=== PATIENT | male | born 2000 | race Caucasian/White ===

== ENCOUNTER 2021-04-15 21:14 | Emergency (ER) | payer SELFPAY ==
[2021-04-15 21:35] VITALS: BP 138/71; PULSE 104; RESP 20; TEMP 37.2; O2SAT 100
[2021-04-15 23:42] VITALS: BP 112/55; PULSE 78; RESP 15; TEMP 36.2; O2SAT 98
--- NOTE | 2021-04-16 01:23 | PC.NURSE ---
Pt ambulated to director of health care marketing to say his ride was here and he no longer wanted to wait to be seen. Pt ambulated out in no distress w/ steady gait.
== END 2021-04-16 02:02 | disposition left against medical advice (07) ==
LOC: ANHED 04-16 01:40
DX: Z53.21 Procedure and treatment not carried out due to patient leaving prior to being seen by health care provider (principal)
CPT/HCPCS: 99199

== ENCOUNTER 2021-04-16 07:19 | Inpatient (IN) | payer OTHER, SELFPAY ==
[2021-04-16] VITALS (51 sets, daily range): BP systolic 100–148; BP diastolic 35–76; PULSE 76–125; RESP 14–22; TEMP 37–38.8; O2SAT 95–100; BMI 24.7
--- NOTE | ~2021-04-16 | CT_ITS ---
EXAMINATION: CT brain wo con EXAM DATE: 04/16/2021 08:34 INDICATION: Headache. Symptoms 5 days. TECHNIQUE: Spiral CT of the head was performed without contrast. Axial, coronal and sagittal images were reviewed. The dose-length product (DLP) for this examination was 605.33 mGy-cm. The exposure w as tailored according to patient size, and iterative reconstruction (ASIR) was used as additional dos e reduction technique. There is no prior study for comparison. FINDINGS: Basilar cisterns unremarkable. There is no acute intraparenchymal hemorrhage. No evidence of intraparenchymal brain mass lesion. No evidence of acute infarction. There is no mass effect or midline shift. The ventricles are normal in size. There are no extra-axial collections. There are no acute calvarial fractures. The orbits are unremarkable. Soft tissue is unremarkable. The visuali zed sinuses and mastoid air cells are well aerated. IMPRESSION: No acute intracranial findings. Reviewed, dictated and finalized at location A. 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
--- NOTE | ~2021-04-16 | XR_ITS ---
EXAMINATION: XR lumbar puncture diagnostic EXAM DATE: 04/16/2021 13:32 INDICATION: Headaches. TECHNIQUE: Informed consent was obtained from the patient for doing this procedure. I discussed bene fits and risks including bleeding, infection, backache and headache. Alternatives also discussed. Rad iologist Kun Oconnor M.D. performed the procedure with date of pulsed dose reduction fluoroscopy, wit h fluoroscopic time of 0.1 minutes. The DAP for this procedure was 0.09 Gycm2. A total of 1 images obtained for the exam. A timeout procedure was performed. The back was prepped in standard sterile fashion with Betadine. L4-5 entry site was chosen under fluoroscopic guidance and infiltrated with 2 mL 1% lidocaine. The t hecal sac was then accessed from a left paracentral approach using a 3.5 22G needle. Opening pressure determined to be 20 mmHg, considered upper limits of normal. A total of 9.5 mL of c lear cerebral spinal fluid were then drained and placed in 3 consecutive vials which were labeled and sent to lab for analysis. There were no immediate complications. IMPRESSION: Status post fluoroscopic guided lumbar puncture. Reviewed, dictated and finalized at location A. RANS EMPLOYMENT REPRESENTATIVE
--- NOTE | ~2021-04-16 | MR_ITS ---
EXAMINATION: MR brain/brain stem wo con EXAM DATE: 04/17/2021 17:54 INDICATION: registered dietician infection . TECHNIQUE: Magnetic resonance imaging (MRI) of the brain/brain stem obtained without contrast. Sagitt al T1, axial diffusion, gradient echo (T2*), T1, T2, FLAIR sequences obtained. Correlation is made t o head CT from 04/16/2021. FINDINGS: No temporal lobe edema or other intraparenchymal signal abnormality. 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 There are no areas of restricted diffusion to suggest acute infarction . There is no acute hemorrhage seen on the T2*, a hemosiderin sensitive sequence. No intraparenchym al brain mass. The ventricles are normal in size. There are no extra-axial collections. Flow voids are seen in the cerebral arteries on the T2-weighted sequences consistent with their expected patency . The orbits are unremarkable. Incidental note made of enlarged tonsils seen on the sagittal T1-we ighted sequence. IMPRESSION: 1. No acute intracranial findings. 2. Bilateral tonsillar hypertrophy. Reviewed, dictated and finalized at location A. 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
[2021-04-16] MEDS: SODIUM CHLORIDE 0.9% IV 1,000 ML 999 ML IV CONT ×2 (08:50→09:46)
[2021-04-16] MEDS: ONDANSETRON INJ 4 MG/2 ML VIAL IV PUSH (08:51)
[2021-04-16 09:00] LABS: Basophils Percent Auto 0.3 % (0.2-1.2); Hematocrit 34.6 % (42.0-52.0); Hemoglobin 12.2 g/dL (14.0-18.0); Immature Granulocyte Absolute 0.05 K/mm3 (0.00-0.031); Immature Granulocyte Percent A 0.5 % (0-0.5); Lymphocytes Percent Auto 6.6 % (18.3-44.2); Mean Corpuscular HGB Conc 35.3 g/dl (32-36); Mean Corpuscular Hemoglobin 31.8 pg (26-34); Mean Corpuscular Volume 90.1 fl (80-100); Mean Platelet Volume 9.2 fl (7.4-10.4); Monocytes Absolute Auto 0.9 K/mm3 (0.1-0.6); Monocytes Percent Auto 8.2 % (2.6-8.5); Neutrophils Absolute Auto 8.9 K/mm3 (1.3-6.7); Neutrophils Percent Auto 84.4 % (45.5-73.1); Platelet Count Result 168 k/mm3 (150-375); Red Blood Count 3.84 M/mm3 (4.6-6.20); Red Cell Distribution Width 11.9 % (11.5-14.5); White Blood Count 10.5 K/mm3 (4.5-10.0)
[2021-04-16 09:08] LABS: Lipase 38 U/L (23-300)
[2021-04-16 09:33] LABS: Alanine Aminotransferase 25 U/L (4-50); Albumin Level 4.1 g/dL (3.7-5.6); Alkaline Phosphatase 87 U/L (58-237); Anion Gap 12 mmol/L (8-16); Aspartate Amino Transferase 33 U/L (17-59); Bilirubin,Total 0.7 mg/dL (0.2-1.3); Blood Urea Nitrogen 16 mg/dL (8-21); Calcium 8.6 mg/dL (8.9-10.7); Carbon Dioxide 21 mmol/L (22-30); Chloride 99 mmol/L (98-107); Estimated CRCL calculation 112 ml/min; Estimated Glomerular Filt Rate > 60; Glucose 116 mg/dL (65-110); Potassium 3.7 mmol/L (3.4-5.0); Sodium 132 mmol/L (134-143)
[2021-04-16 09:34] LABS: Add Urine Microscopic? YES; Appearance Urine Clear (Clear); Bilirubin Urine Negative (Negative); Blood Urine Negative (Negative); Color Urine Yellow (Yellow); Glucose Urine UA Negative (Negative); Ketones Urine 2+ mg/dL (Negative); Leukocyte Esterase Ur Negative LEU/UL (Negative); Mucus Urine Rare /lpf; Nitrate Urine Negative (Negative); Protein Urine Negative (Negative); RBC Urine 0-2 /hpf (0-2); Specific Grav Ur 1.027 (1.001-1.035); Urobilinogen Urine Negative mg/dL (<2.0); WBC Urine 0-3 /hpf
[2021-04-16 09:47] LABS: INR 1.2; Partial Thromboplastin Time 30.1 SECONDS (22.3-36.8); Prothrombin Time 14.8 Seconds (11.1-14.7)
[2021-04-16] MEDS: KETOROLAC 30 MG/ML VIAL (*BKC) IV PUSH (10:22)
--- NOTE | 2021-04-16 12:13 | PC.NURSE ---
RN obtained consent for pt. spinal tap. ERP aware.
[2021-04-16 13:47] LABS: Glucose CSF 58 mg/dL (40-70); Total Protein CSF 68 mg/dL (12-60)
[2021-04-16 14:05] LABS: Appearance CSF Clear (Clear); CSF source CSF; Color CSF Colorless (Colorless); Lymphocytes CSF 95 % (40-80); Monocytes CSF 5 % (15-45)
[2021-04-16 14:06] LABS: Nucleated Cell CSF 437 /uL (0-5); Red Blood Cell CSF 0 (0-2)
[2021-04-16] MEDS: cefTRIAXone 2 GM in SODIUM CHLORIDE 0.9% IV 100 ML 200 ML IVPB (15:32)
--- NOTE | 2021-04-16 15:43 | ED.FEVER ---
HPI - Fever General Chief Complaint: Fever Stated Complaint: Headache Time Seen by Provider: 04/16/21 07:56 Source: RN notes reviewed History of Present Illness HPI Narrative: Patient presents emergency department from home for headache patient states temperatu headache initially began on Saturday, 03 April and been constant since that time the pain is diffuse throughout the head described as aching in nature he states that he began to develop a fever yesterday as well as nausea vomiting. Patient states that he did not take anything for the pain today states the pain is worse when he bends his head forward or side to side states that he was seen at emergency department yesterday and had a work-up including Covid swab there were negative he denies taking any medication today for the pain he denies any vision changes numbness or tingling in extremities chest pain shortness of breath abdominal or any other Related Data Allergies Allergy/AdvReac Type Severity Reaction Status Date / Time No Known Allergies Allergy Verified 04/15/21 21:37 Review of Systems Review of Systems: Gen.: Reports fever Eyes: Denies eye pain or visual change ENT: Denies congestion Respiratory: Denies shortness of breath or cough CV: Denies chest pain or palpitations GI: Denies abdominal pain reports nausea Musculoskeletal: Denies back pain or muscle pain Neuro: Reports headache Skin: Denies rash Except as documented, all other systems reviewed and negative [facility] Past Medical History Medical History (Updated 04/16/21 @ 17:06 by Lionel Rojo DO) Patient denies significant medical history Social History Social History (Updated 04/16/21 @ 17:04 by Lionel Rojo DO) Smoking status: Never smoker Exam Narrative: APPEARANCE: No acute distress, nontoxic, resting in bed EYES: EOMI, PERRL HEENT: Normocephalic, atraumatic, TMs clear bilaterally nares patent Neck: Supple no midline tenderness palpation increased headache with bending head forward and side to side RESPIRATORY: No respiratory distress Clear to auscultation bilaterally with no rhonchi wheezing or rales. CARDIOVASCULAR: Regular rate and rhythm without murmurs rubs or gallops. ABDOMINAL: Soft, nontender, nondistended, no rebound or guarding MUSCULOSKELETAl: Moves all extremities. No clubbing, cyanosis or edema. NEURO: Awake and alert x 3. Following commands, speech normal, no focal deficits SKIN:: Warm, dry. No rashes lesions or abrasions PSYCHIATRIC: Normal affect/mood, Course Course Emergency Course: Cussed with Dr. Oconnor will take patient for spinal tap under fluoroscopy Discussed with Dr. Feliciano results of work-up this time does agree likely viral he does request the patient be started with both antibiotics and acyclovir to cover for bacterial and viral meningitis until full cultures are returned Patient states he is feeling better at this time states headache is down to 1 remains ANO x3 Discussed with patient and family results of workup and diagnosis. Discussed need for admission. Patient and family understand and agree to current treatment plan Vital Signs Vital signs: Vital Signs Temperature 101.6 F H 04/16/21 07:34 Pulse Rate 125 H 04/16/21 07:34 Respiratory Rate 16 04/16/21 07:34 Blood Pressure 122/76 04/16/21 07:34 Pulse Oximetry 99 04/16/21 07:34 Temperature 100.1 F H 04/16/21 16:19 Pulse Rate 110 H 04/16/21 16:19 Respiratory Rate 14 04/16/21 16:19 Blood Pressure 122/53 L 04/16/21 14:00 Pulse Oximetry 99 04/16/21 16:19 MDM - Fever Lab Data Result diagrams: 04/16/21 08:51 04/16/21 08:51 Labs: Lab Results 04/16/21 04/16/21 04/16/21 Range/Units 08:51 08:51 08:51 WBC 10.5 H (4.5-10.0) K/mm3 RBC 3.84 L (4.6-6.20) M/mm3 Hgb 12.2 L (14.0-18.0) g/dL Hct 34.6 L (42.0-52.0) % MCV 90.1 (80-100) fl MCH 31.8 (26-34) pg MCHC 35.3 (32-36) g/dl RDW 11.9 (11.5-14.
[2021-04-16 16:07] LABS: Lactic Acid Reflex 0.8 mmol/L (0.7-2.1)
[2021-04-16] MEDS: SODIUM CHLORIDE 0.9% IV 1,000 ML 80 ML IV CONT ×2 (19:00→22:35)
--- NOTE | 2021-04-16 23:42 | ADMGEN ---
This patient, Noel Chahal, was admitted to [facility] Surg Room 309-01. Patient oriented to hospital policies and general routines including ID bracelet, bed and alarms, visiting hours, pain management, procedures, bathroom and other care routines, personal items, smoking policy, room service/diet, and visiting hours. Information on how to activate the Rapid Response Team has been discussed. Patient/Family are encouraged to report perceived risks to care and to ask questions if they do not understand what they are told or what they should do.
[2021-04-17] MEDS: cefTRIAXone 2 GM in SODIUM CHLORIDE 0.9% IV 100 ML 200 ML IVPB ×2 (03:51→16:56)
[2021-04-17 06:30] VITALS: BP 129/62; PULSE 88; RESP 16; TEMP 37.4; O2SAT 99
[2021-04-17 06:34] LABS: Basophils Percent Auto 0.4 % (0.2-1.2); Eosinophils Percent Auto 0.2 % (0-4.4); Hematocrit 32.9 % (42.0-52.0); Hemoglobin 11.5 g/dL (14.0-18.0); Immature Granulocyte Absolute 0.04 K/mm3 (0.00-0.031); Immature Granulocyte Percent A 0.4 % (0-0.5); Lymphocytes Absolute Auto 1.25 K/mm3 (0.9-3.2); Lymphocytes Percent Auto 13.7 % (18.3-44.2); Mean Corpuscular Hemoglobin 31.4 pg (26-34); Mean Corpuscular Volume 89.9 fl (80-100); Mean Platelet Volume 9.4 fl (7.4-10.4); Monocytes Absolute Auto 0.9 K/mm3 (0.1-0.6); Monocytes Percent Auto 9.8 % (2.6-8.5); Neutrophils Absolute Auto 6.9 K/mm3 (1.3-6.7); Neutrophils Percent Auto 75.5 % (45.5-73.1); Platelet Count Result 160 k/mm3 (150-375); Red Blood Count 3.66 M/mm3 (4.6-6.20); Red Cell Distribution Width 11.7 % (11.5-14.5); White Blood Count 9.1 K/mm3 (4.5-10.0)
[2021-04-17 07:32] LABS: Anion Gap 8 mmol/L (8-16); Blood Urea Nitrogen 8 mg/dL (8-21); Calcium 8.1 mg/dL (8.9-10.7); Carbon Dioxide 25 mmol/L (22-30); Chloride 101 mmol/L (98-107); Estimated CRCL calculation 123 ml/min; Estimated Glomerular Filt Rate > 60; Glucose 168 mg/dL (65-110); Potassium 3.7 mmol/L (3.4-5.0); Sodium 134 mmol/L (134-143)
--- NOTE | 2021-04-17 10:41 | WPDNEURCNPN ---
Consult date: 04/17/21 HPI: Noel Chahal is a 20 year old male [facility] Past Medical History Medical History (Updated 04/16/21 @ 17:06 by Lionel Rojo DO) Patient denies significant medical history Social History Social History (Updated 04/16/21 @ 17:04 by Lionel Rojo DO) Smoking status: Never smoker Alcohol intake: never Substance use type: marijuana Other substance usage details: occasionally Spiritual care concerns: No Meds Home Medications and Allergies Home Medications Medication Instructions Recorded Confirmed Type No Home Medications 04/16/21 04/16/21 History Allergies Allergy/AdvReac Type Severity Reaction Status Date / Time No Known Allergies Allergy Verified 04/15/21 21:37 Vital Signs Vital Signs - 24 hr 04/16/21 10:52 04/16/21 11:00 04/16/21 11:01 Temperature 37.2 C Pulse Rate Respiratory Rate Blood Pressure 100/60 Pulse Oximetry 95 98 99 04/16/21 11:02 04/16/21 11:32 04/16/21 11:51 Temperature Pulse Rate Respiratory Rate Blood Pressure Pulse Oximetry 98 100 98 04/16/21 12:56 04/16/21 13:22 04/16/21 13:49 Temperature Pulse Rate 90 90 Respiratory Rate 18 16 Blood Pressure 113/51 L 121/60 Pulse Oximetry 98 96 100 04/16/21 14:00 04/16/21 14:01 04/16/21 14:48 Temperature Pulse Rate 76 Respiratory Rate 14 Blood Pressure 122/53 L Pulse Oximetry 100 100 100 04/16/21 15:00 04/16/21 15:01 04/16/21 15:15 Temperature 37.2 C Pulse Rate 98 Respiratory Rate 14 Blood Pressure 130/70 Pulse Oximetry 100 100 100 04/16/21 15:31 04/16/21 15:45 04/16/21 16:01 Temperature Pulse Rate Respiratory Rate Blood Pressure Pulse Oximetry 100 99 99 04/16/21 16:05 04/16/21 16:15 04/16/21 16:19 Temperature 37.7 C H 37.8 C H Pulse Rate 110 H Respiratory Rate 14 Blood Pressure Pulse Oximetry 99 99 04/16/21 16:21 04/16/21 16:30 04/16/21 16:57 Temperature Pulse Rate 90 Respiratory Rate 14 Blood Pressure 143/67 H Pulse Oximetry 99 97 98 04/16/21 17:00 04/16/21 17:15 04/16/21 17:53 Temperature 37.2 C Pulse Rate Respiratory Rate Blood Pressure Pulse Oximetry 98 99 98 04/16/21 18:01 04/16/21 18:03 04/16/21 18:10 Temperature Pulse Rate 93 Respiratory Rate 14 Blood Pressure 126/66 136/57 L Pulse Oximetry 99 98 99 04/16/21 18:13 04/16/21 18:24 04/16/21 19:50 Temperature 37.0 C Pulse Rate 94 98 Respiratory Rate 16 16 Blood Pressure 136/57 L 114/72 Pulse Oximetry 99 100 04/16/21 20:25 04/16/21 21:23 04/16/21 21:50 Temperature 38.8 C H 38.8 C H 37.1 C Pulse Rate 109 H Respiratory Rate 22 H Blood Pressure 148/67 H Pulse Oximetry 99 04/16/21 22:00 04/17/21 06:30 Temperature 37.6 C 37.4 C Pulse Rate 110 H 88 Respiratory Rate 18 16 Blood Pressure 144/65 H 129/62 Pulse Oximetry 100 99 Results Labs CBC & Chem 7: 04/17/21 06:07 04/17/21 06:07 Labs: Short CBC 04/17/21 Range/Units 06:07 WBC 9.1 (4.5-10.0) K/mm3 Hgb 11.5 L (14.0-18.0) g/dL Hct 32.9 L (42.0-52.0) % Plt Count 160 (150-375) k/mm3 BMP 04/17/21 06:07 Sodium 134 Potassium 3.7 Chloride 101 Carbon Dioxide 25 BUN 8 D Creatinine 0.90 Glucose 168 H Calcium 8.1 L
--- NOTE | 2021-04-17 10:45 | WPDNEURCNPN ---
Assessment and Plan Additional Plan meningitis most likely viral cover with all the antibiotics and antiviral and the final cultures are of a compared to yesterday his feeling better has no change in the neurological status there is no focal finding Consult date: 04/17/21 HPI: Noel Chahal is a 20 year old male Admitted to the hospital through the emergency room for the complaints of severe headaches and temperature elevation the patient reported initially on 03 of April developed the headache and has been constant since that time and only yesterday he started developing the fever with nausea and vomiting his pain is worse when he bends his head forward or side to side he was seen in the emergency room the day before the COVID swab was negative and he was not taking any medication he is normal allergic to any med, he gave no history of retro ophthalmic pain upper respiratory congestion difficulties in brief pain in chest or abdomen or pain in his upper and lower extremities and also there was no rash patient is reportedly not smoke. Evaluation in the emergency room included a CBC which revealed WBC of 9.1 with hemoglobin 11.5 platelet count of 160 neutrophils 75.5 and lives 13.7 with monos 9.8, protime was 14.8 with INR 1.2 a PTT 30.1 and chemistry was normal with glucose of 168 and calcium 8.1 UA was negative with 2+ ketones and herpes simplex culture is pend, spinal fluid studies revealed nucleated cells of 437 lymphs 95 monos 5 glucose 58 and protein of 68 and all the cultures are pending, CT scan of the head was negative Review of Systems Review of Systems: All systems reviewed & are unremarkable except as noted in HPI and below PMFSH Past Medical History Medical History Patient denies significant medical history Social History Social History Smoking status: Never smoker Alcohol intake: never Substance use type: marijuana Other substance usage details: occasionally Spiritual care concerns: No Meds Home Medications and Allergies Home Medications Medication Instructions Recorded Confirmed Type No Home Medications 04/16/21 04/16/21 History Allergies Allergy/AdvReac Type Severity Reaction Status Date / Time No Known Allergies Allergy Verified 04/15/21 21:37 Vital Signs Vital Signs - 24 hr 04/16/21 10:52 04/16/21 11:00 04/16/21 11:01 Temperature 37.2 C Pulse Rate Respiratory Rate Blood Pressure 100/60 Pulse Oximetry 95 98 99 04/16/21 11:02 04/16/21 11:32 04/16/21 11:51 Temperature Pulse Rate Respiratory Rate Blood Pressure Pulse Oximetry 98 100 98 04/16/21 12:56 04/16/21 13:22 04/16/21 13:49 Temperature Pulse Rate 90 90 Respiratory Rate 18 16 Blood Pressure 113/51 L 121/60 Pulse Oximetry 98 96 100 04/16/21 14:00 04/16/21 14:01 04/16/21 14:48 Temperature Pulse Rate 76 Respiratory Rate 14 Blood Pressure 122/53 L Pulse Oximetry 100 100 100 04/16/21 15:00 04/16/21 15:01 04/16/21 15:15 Temperature 37.2 C Pulse Rate 98 Respiratory Rate 14 Blood Pressure 130/70 Pulse Oximetry 100 100 100 04/16/21 15:31 04/16/21 15:45 04/16/21 16:01 Temperature Pulse Rate Respiratory Rate Blood Pressure Pulse Oximetry 100 99 99 04/16/21 16:05 04/16/21 16:15 04/16/21 16:19 Temperature 37.7 C H 37.8 C H Pulse Rate 110 H Respiratory Rate 14 Blood Pressure Pulse Oximetry 99 99 04/16/21 16:21 04/16/21 16:30 04/16/21 16:57 Temperature Pulse Rate 90 Respiratory Rate 14 Blood Pressure 143/67 H Pulse Oximetry 99 97 98 04/16/21 17:00 04/16/21 17:15 04/16/21 17:53 Temperature 37.2 C Pulse Rate Respiratory Rate Blood Pressure Pulse Oximetry 98 99 98 04/16/21 18:01 04/16/21 18:03 04/16/21 18:10 Temperature Pulse Rate 93 Respiratory Rate 14 Blood Pressure 126/66 136/57
[2021-04-17 13:52] VITALS: BP 140/82; PULSE 88; RESP 20; TEMP 37.1; O2SAT 99
--- NOTE | 2021-04-17 18:30 | PM.IMPN ---
Subjective Date/time seen: 04/17/21 14:30 S: Objective Data Vital Signs Vital Signs: Vital Signs - 24 hr 04/16/21 19:50 04/16/21 20:25 04/16/21 21:23 Temperature 101.8 F H 101.8 F H Pulse Rate 98 109 H Respiratory Rate 16 22 H Blood Pressure 114/72 148/67 H Pulse Oximetry 100 99 04/16/21 21:50 04/16/21 22:00 04/17/21 06:30 Temperature 98.8 F 99.6 F 99.3 F Pulse Rate 110 H 88 Respiratory Rate 18 16 Blood Pressure 144/65 H 129/62 Pulse Oximetry 100 99 04/17/21 13:52 Temperature 98.7 F Pulse Rate 88 Respiratory Rate 20 Blood Pressure 140/82 Pulse Oximetry 99 Intake/Output Intake/Output: Intake & Output 04/14/21 04/15/21 04/16/21 04/17/21 23:59 23:59 23:59 23:59 Intake Total 4330.8 865.4 Balance 4330.8 865.4 Meds/Results Medications: Active Medications Generic Name Dose Route Start Last Admin Trade Name Freq PRN Reason Stop Dose Admin Ceftriaxone Sodium 2 gm/ 100 mls @ 200 mls/hr 04/17/21 04:00 04/17/21 16:56 Sodium Chloride IVPB 200 mls/hr Q12H LILY Administration Acyclovir Sodium 770 mg/ 265.4 mls @ 266 mls/hr 04/16/21 22:00 04/17/21 13:51 Dextrose IVPB 266 mls/hr Q8HR LILY Administration Sodium Chloride 1,000 mls @ 80 mls/hr 04/16/21 15:10 04/16/21 22:35 Normal Saline Iv IV CONT 80 mls/hr .[id number] LILY Administration Vancomycin HCl 1,500 mg in 500 mls @ 333.333 mls/hr 04/17/21 03:00 04/17/21 03:51 Vancomycin 1,500 Mg/D5w 500 Ml IVPB 333.33 mls/hr Q12H LILY Administration Radiology Results: ITS Impressions Head CT 04/16/21 08:35 IMPRESSION: No acute intracranial findings. Lumbar Puncture Fluoroscopy 04/16/21 14:07 IMPRESSION: Status post fluoroscopic guided lumbar puncture. Labs Labs: Laboratory Results - last 24 hr 04/17/21 04/17/21 06:07 06:07 WBC 9.1 RBC 3.66 L Hgb 11.5 L Hct 32.9 L MCV 89.9 MCH 31.4 MCHC 35.0 RDW 11.7 Plt Count 160 MPV 9.4 Immature Gran % (Auto) 0.4 Neut % (Auto) 75.5 H Lymph % (Auto) 13.7 L [place] % (Auto) 9.8 H Eos % (Auto) 0.2 Baso % (Auto) 0.4 Lymph # (Auto) 1.25 [place] # (Auto) 0.9 H Eos # (Auto) 0.0 Baso # (Auto) 0.0 Abs Immat Gran (auto) 0.04 H Absolute Neuts (auto) 6.9 H Absolute Nucleated RBC 0.0 Nucleated RBC % 0.0 Sodium 134 Potassium 3.7 Chloride 101 Carbon Dioxide 25 Anion Gap 8 BUN 8 D Creatinine 0.90 Estim Creat Clear Calc 123 Estimated GFR > 60 Glucose 168 H Calcium 8.1 L
--- NOTE | 2021-04-17 18:35 | PM.IMHP ---
H&P: HPI History of Present Illness Date/Time: 04/17/21 18:35 cc: fever and headaches. Noel Chahal is a 20 year old male admitted to the hospital through the emergency room for the complaints of severe headaches and temperature elevation. The patient was in her usual state of health until 03 of April. On that day he developed constant headache and has been constant since that time. On the day prior to admission, he started developing the fever with nausea and vomiting. The headache is worse when he bends his head forward or side to side. He was seen in the emergency room; he was stable but febrile with a temperature of 101.8? F, pulse rate 109, respiration 22, blood pressure 148/67, pulse of 99% on room air. Evaluation in the emergency room included a CBC which revealed WBC of 9.1 with hemoglobin 11.5 platelet count of 160 neutrophils 75.5 and lives 13.7 with monos 9.8, protime was 14.8 with INR 1.2 a PTT 30.1. Chemistry was normal with glucose of 168 and calcium 8.1 UA was negative with 2+ ketones. S spinal tap was performed, spinal fluid studies revealed nucleated cells of 437 lymphs 95 monos 5 glucose 58 and protein of 68 and all the cultures are pending, CT scan of the head was negative. Patient is admitted for management of possible viral meningitis. He will be in the hospital for at least 2 midnight. Patient is admitted as inpatient. Chief Complaint: Fever and headaches. Review of Systems Review of Systems: All systems reviewed & are unremarkable except as noted in HPI and below PMFSH Past Medical History Medical History Patient denies significant medical history Social History Social History Smoking status: Never smoker Alcohol intake: never Substance use type: marijuana Other substance usage details: occasionally Spiritual care concerns: No Meds Home Medications and Allergies Home Medications Medication Instructions Recorded Confirmed Type No Home Medications 04/16/21 04/16/21 History Allergies Allergy/AdvReac Type Severity Reaction Status Date / Time No Known Allergies Allergy Verified 04/15/21 21:37 Vital Signs Vital Signs - 24 hr 04/16/21 19:50 04/16/21 20:25 04/16/21 21:23 Temperature 101.8 F H 101.8 F H Pulse Rate 98 109 H Respiratory Rate 16 22 H Blood Pressure 114/72 148/67 H Pulse Oximetry 100 99 04/16/21 21:50 04/16/21 22:00 04/17/21 06:30 Temperature 98.8 F 99.6 F 99.3 F Pulse Rate 110 H 88 Respiratory Rate 18 16 Blood Pressure 144/65 H 129/62 Pulse Oximetry 100 99 04/17/21 13:52 Temperature 98.7 F Pulse Rate 88 Respiratory Rate 20 Blood Pressure 140/82 Pulse Oximetry 99 Exam Const: General: cooperative, comfortable and no acute distress Orientation/consciousness: oriented to person, oriented to place and oriented to time Limitations: no limitations HENMT: Head: normocephalic Ears: hearing grossly normal bilaterally General nose exam: Normal external nose present Face and sinus: normal facial exam Mouth: Yes Normal oral and palatal mucosa present Throat: tonsils normal and uvula midline Eyes: General: appearance normal, both eyes and all related structures Visual Ayon: normal visual ayon by confrontation Alignment and Position: alignment normal Periorbital: periorbital findings normal Eyelids: eyelids normal Conjunctivae: conjunctivae normal Sclera: sclerae normal Cornea: corneas normal Pupils: Equal, round and reactive pupils present EOM: EOMs intact bilaterally Direct Ophthalmoscopy: normal light reflex Neck: Neck: normal visual inspection, full ROM and no lymphadenopathy Carotids: normal carotid upstroke Resp: Effort & Inspection: normal respiratory effort and able to speak in complete sentences Auscultation: clear to auscultation bilaterally Cardio: Jugular venous distension: no JVD Rate: regular rate Rhythm: regular r
[2021-04-17 21:56] VITALS: BP 123/65; PULSE 77; RESP 16; TEMP 36.6; O2SAT 100
[2021-04-18 02:25] LABS: Estimated CRCL calculation 123 ml/min; Estimated Glomerular Filt Rate > 60
[2021-04-18 02:41] LABS: Vancomycin Trough 8.1 ug/mL (10.0-20.0)
[2021-04-18] MEDS: cefTRIAXone 2 GM in SODIUM CHLORIDE 0.9% IV 100 ML 200 ML IVPB (03:45)
[2021-04-18] MEDS: SODIUM CHLORIDE 0.9% IV 1,000 ML 80 ML IV CONT ×2 (03:50→23:33)
[2021-04-18 06:00] VITALS: BP 110/50; PULSE 67; RESP 16; TEMP 36.7; O2SAT 100
--- NOTE | 2021-04-18 12:19 | PM.IMPN ---
Progress Note: A&P Assessment and Plan (1) Meningitis: Code(s): G03.9 - Meningitis, unspecified Status: Acute Additional Plan Patient with presented with symptoms. Shows for bacterial meningitis. Lumbar puncture was performed patient was started on Rocephin, vancomycin and acyclovir pending CSF studies. Currently patient's symptoms are improving. CSF studies are unrevealing. Per neurology recommendations, stop IV antibiotics. Continue PO antiviral medication for 10 days Continue Tylenol as needed for headaches. DVT prophylaxis. Subjective Date/time seen: 04/18/21 11:00 S: Patient was sedated examined at the bedside. Headache has resolved. Neck pain is improving. Patient denies any other complaints. Review of Systems Review of Systems: All systems reviewed & are unremarkable except as noted in HPI and below Exam Const: General: cooperative, comfortable and no acute distress Orientation/consciousness: oriented to person, oriented to place and oriented to time Limitations: no limitations HENMT: Head: normocephalic Ears: hearing grossly normal bilaterally General nose exam: Normal external nose present Face and sinus: normal facial exam Mouth: Yes Normal oral and palatal mucosa present Throat: tonsils normal and uvula midline Eyes: General: appearance normal, both eyes and all related structures Visual Ayon: normal visual ayon by confrontation Alignment and Position: alignment normal Periorbital: periorbital findings normal Eyelids: eyelids normal Conjunctivae: conjunctivae normal Sclera: sclerae normal Cornea: corneas normal Pupils: Equal, round and reactive pupils present EOM: EOMs intact bilaterally Direct Ophthalmoscopy: normal light reflex Neck: Neck: normal visual inspection, full ROM and no lymphadenopathy Carotids: normal carotid upstroke Resp: Effort & Inspection: normal respiratory effort and able to speak in complete sentences Auscultation: clear to auscultation bilaterally Cardio: Jugular venous distension: no JVD Rate: regular rate Rhythm: regular rhythm GI: Inspection: normal to inspection Auscultation: normal bowel sounds Skin: General skin exam: normal color and no rashes or lesions noted Neuro: General: oriented to person, oriented to place, oriented to time and Unable to assess gait Cranial nerves: Yes CN's II-XII intact bilaterally and Yes Equal, round and reactive pupils present Cognition (Neuro): normal cognition Speech: normal speech Gait exam (Neuro): Unable to assess gait Motor exam (neuro): 5/5 motor strength present throughout Sensory Exam: normal sensation Deep tendon reflexes (DTR's): Right triceps reflex intensity grade: 1+, Left triceps reflex intensity grade: 1+, Rt Biceps (C5, C6): 1+, Left biceps reflex intensity grade: 1+, Right brachioradialis reflex intensity grade: 1+, Left brachioradialis reflex intensity grade: 1+, Right patellar reflex intensity grade: 1+, Left patellar reflex intensity grade: 1+, Right ankle reflex intensity grade: 1+ and Left ankle reflex intensity grade: 1+ Plantar Reflex Responses: downgoing: bilateral Coordination: [id number] test normal Psych: Appearance: grossly normal Mental Status: mental status grossly normal Speech and movement: Normal speech and movement present Affect: normal affect Attitude: cooperative Thought process: Normal thought process present Insight: Good insight present (Psych) Judgement: Good judgement present (Psych) Objective Data Vital Signs Vital Signs: Vital Signs - 24 hr 04/17/21 21:56 04/18/21 06:00 04/18/21 14:00 Temperature 98 F 98.1 F 98.3 F Pulse Rate 77 67 72 Respiratory Rate 16 16 16 Blood Pressure 123/65 110/50 L 124/58 L Pulse Oximetry 100 100 99 Intake/Output Intake/Output: Intake & Output 04/15/21 04/16/21 04/17/21 04/18/21 23:59 23:59 23:59 23:59 Intake Total 4430.8 3496.2 1595.4 Balance 4430.8 3496.2 1595.4 Meds/Results Medications: Active Medications Ge
--- NOTE | 2021-04-18 12:55 | WPDNEUROPN ---
Progress Note: A&P Additional Plan if all the cultures are negative post 72 hours antibiotics can be discontinued with the continuation of only antiviral medication for 10 days and that is also p.o. Time Spent With Patient Time with patient: less than 15 minutes Subjective Date/time seen: 04/18/21 12:55 remains stable, afebrile, with no change in the neurological status Review of Systems Review of Systems: All systems reviewed & are unremarkable except as noted in HPI and below Exam Const: General: cooperative, healthy appearing, comfortable and no acute distress Nutritional Appearance: average body habitus Orientation/consciousness: oriented to person, oriented to place and oriented to time Limitations: no limitations HENMT: Head: normal to inspection and normocephalic Ears: hearing grossly normal bilaterally General nose exam: Normal external nose present Face and sinus: normal facial exam Mouth: Yes Normal oral and palatal mucosa present Eyes: General: appearance normal, both eyes and all related structures Visual Ayon: normal visual ayon by confrontation Alignment and Position: alignment normal Periorbital: periorbital findings normal Eyelids: eyelids normal Conjunctivae: conjunctivae normal Sclera: sclerae normal Cornea: corneas normal Pupils: Equal, round and reactive pupils present EOM: EOMs intact bilaterally Neck: Neck: normal visual inspection, full ROM and no lymphadenopathy Carotids: normal carotid upstroke Resp: Effort & Inspection: normal respiratory effort and able to speak in complete sentences Auscultation: clear to auscultation bilaterally Cardio: Rate: regular rate Rhythm: regular rhythm Skin: General skin exam: no rashes or lesions noted Neuro: General: oriented to person, oriented to place and oriented to time Cranial nerves: Yes CN's II-XII intact bilaterally Cognition (Neuro): normal cognition Speech: normal speech Gait exam (Neuro): Normal gait present Motor exam (neuro): 5/5 motor strength present throughout Sensory Exam: normal sensation Deep tendon reflexes (DTR's): Right triceps reflex intensity grade: 1+, Left triceps reflex intensity grade: 1+, Rt Biceps (C5, C6): 1+, Left biceps reflex intensity grade: 1+, Right brachioradialis reflex intensity grade: 1+, Left brachioradialis reflex intensity grade: 1+, Right patellar reflex intensity grade: 1+, Left patellar reflex intensity grade: 1+, Right ankle reflex intensity grade: 1+ and Left ankle reflex intensity grade: 1+ Plantar Reflex Responses: downgoing: bilateral Extrem: General: normal to inspection and full ROM Psych: Appearance: grossly normal Mental Status: mental status grossly normal Speech and movement: Normal speech and movement present Affect: normal affect Attitude: cooperative Thought process: Normal thought process present Thought content: Yes Normal thought content present Insight: Good insight present (Psych) Judgement: Good judgement present (Psych) Objective Data Vital Signs Vital Signs: Vital Signs - 24 hr 04/17/21 13:52 04/17/21 21:56 04/18/21 06:00 Temperature 37.1 C 36.6 C 36.7 C Pulse Rate 88 77 67 Respiratory Rate 20 16 16 Blood Pressure 140/82 123/65 110/50 L Pulse Oximetry 99 100 100 Intake/Output Intake/Output: Intake & Output 04/15/21 04/16/21 04/17/21 04/18/21 23:59 23:59 23:59 23:59 Intake Total 4430.8 3496.2 960 Balance 4430.8 3496.2 960 Meds/Results Medications: Active Medications Generic Name Dose Route Start Last Admin Trade Name Freq PRN Reason Stop Dose Admin Ceftriaxone Sodium 2 gm/ 100 mls @ 200 mls/hr 04/17/21 04:00 04/18/21 04:15 Sodium Chloride IVPB Infused Q12H LILY Infusion Acyclovir Sodium 770 mg/ 265.4 mls @ 266 mls/hr 04/16/21 22:00 04/18/21 06:14 Dextrose IVPB 266 mls/hr Q8HR LILY Administration Sodium Chloride 1,000 mls @ 80 mls/hr 04/16/21 15:10 04/18/21 03:50 Normal Saline Iv IV CONT 80 mls/hr .[id number] LILY Admi
[2021-04-18 14:00] VITALS: BP 124/58; PULSE 72; RESP 16; TEMP 36.8; O2SAT 99
[2021-04-18 22:00] VITALS: BP 130/58; PULSE 84; RESP 18; TEMP 37.1; O2SAT 100
[2021-04-19 06:00] VITALS: BP 118/52; PULSE 88; RESP 18; TEMP 36.7; O2SAT 100
--- NOTE | 2021-04-19 12:24 | P.PNNEUR_ITS ---
Progress Note: A&P Time Spent With Patient Time with patient: 15 - 25 minutes Subjective Date/time seen: 04/19/21 12:24 20 years old right-handed male admitted through the emergency for the possibility of the meningitis was started on the antibiotics and antiviral treatment throughout the hospitalization here he has remained afebrile normotensive with no focal neurological deficit [facility] cultures have been negative this state antibiotics are being discontinued and will continue p.o. antiviral medication and can be discharged today Review of Systems Review of Systems: All systems reviewed & are unremarkable except as noted in HPI and below Exam Narrative: remains awake alert cooperative in no obvious acute distress head normocephalic, ear nose throat examination normal, neck supple with no meningeal signs, heart regular with no murmur, lungs clear with no rhonchi or crepitations , abdomen is soft nontender, neurological examination revealed him to have normal mental status, normal speech, cranial examination normal, motor and sensory examination normal, plantars downgoing there is no evidence of sensory or cerebellar deficit. Objective Data Vital Signs Vital Signs: Vital Signs - 24 hr 04/18/21 14:00 04/18/21 22:00 04/19/21 06:00 Temperature 36.8 C 37.1 C 36.7 C Pulse Rate 72 84 88 Respiratory Rate 16 18 18 Blood Pressure 124/58 L 130/58 L 118/52 L Pulse Oximetry 99 100 100 Intake/Output Intake/Output: Intake & Output 04/16/21 04/17/21 04/18/21 04/19/21 23:59 23:59 23:59 23:59 Intake Total 4430.8 3496.2 4366.8 320 Balance 4430.8 3496.2 4366.8 320 Meds/Results Medications: Active Medications Generic Name Dose Route Start Last Admin Trade Name Freq PRN Reason Stop Dose Admin Acyclovir Sodium 770 mg/ 265.4 mls @ 266 mls/hr 04/16/21 22:00 04/19/21 06:21 Dextrose IVPB 266 mls/hr Q8HR LILY Administration Sodium Chloride 1,000 mls @ 80 mls/hr 04/16/21 15:10 04/18/21 23:33 Normal Saline Iv IV CONT 80 mls/hr .[id number] LILY Administration Radiology Results: ITS Impressions Head CT 04/16/21 08:35 IMPRESSION: No acute intracranial findings. Lumbar Puncture Fluoroscopy 04/16/21 14:07 IMPRESSION: Status post fluoroscopic guided lumbar puncture. Brain MRI 04/17/21 18:20 IMPRESSION: 1. No acute intracranial findings. 2. Bilateral tonsillar hypertrophy.
--- NOTE | 2021-04-19 12:44 | PM.DS ---
DS: Admitting Diagnosis Discharge Date 04/19/2021 Admitting Diagnosis Acute meningoencephalitis. DS: Discharge Diagnosis Discharge Diagnosis (1) Meningitis: Code(s): G03.9 - Meningitis, unspecified Status: Acute Assessment and Plan: On admission, patient was empirically started on Rocephin, vancomycin and acyclovir while waiting for definitive CSF culture results. Currently patient's symptoms have improved with resolution of headache and neck pain. Continue IV antibiotics. On day 3 of admission, cultures were unrevealing. IV antibiotics were discontinued. Patient was maintained on IV acyclovir. Today the patient will discharged on a 10 day course of acyclovir 800 mg p.o. 3 times daily. He will follow up with his primary care provider 1 week after discharge. He will follow up with Neurology 4- 6 weeks after discharge. DS: Summary Hospital Course Reason for hospitalization: Fever and headaches Hospital Course: Please refer to admission H& P. Briefly, this a 20- year old male admitted to the hospital through the emergency room for the complaints of severe headaches and temperature elevation. The patient was in her usual state of health until 03 of April. On that day he developed constant headache and has been constant since that time. On the day prior to admission, he started developing the fever with nausea and vomiting. The headache is worse when he bends his head forward or side to side. He was seen in the emergency room; he was stable but febrile with a temperature of 101.8? F, pulse rate 109, respiration 22, blood pressure 148/67, pulse of 99% on room air. Evaluation in the emergency room included a CBC which revealed WBC of 9.1 with hemoglobin 11.5 platelet count of 160 neutrophils 75.5 and lives 13.7 with monos 9.8, protime was 14.8 with INR 1.2 a PTT 30.1. Chemistry was normal with glucose of 168 and calcium 8.1 UA was negative with 2+ ketones. S spinal tap was performed, spinal fluid studies revealed nucleated cells of 437 lymphs 95 monos 5 glucose 58 and protein of 68 and all the cultures are pending, CT scan of the head was negative. Patient is admitted for management of possible viral meningitis. For hospital course see diagnosis above. Time Spent with Patient Time attestation: Total time spent providing and/or coordinating discharge services:35 min. Exam Const: General: cooperative, comfortable and no acute distress Orientation/consciousness: oriented to person, oriented to place and oriented to time Limitations: no limitations HENMT: Head: normocephalic Ears: hearing grossly normal bilaterally General nose exam: Normal external nose present Face and sinus: normal facial exam Mouth: Yes Normal oral and palatal mucosa present Throat: tonsils normal and uvula midline Eyes: General: appearance normal, both eyes and all related structures Visual Ayon: normal visual ayon by confrontation Alignment and Position: alignment normal Periorbital: periorbital findings normal Eyelids: eyelids normal Conjunctivae: conjunctivae normal Sclera: sclerae normal Cornea: corneas normal Pupils: Equal, round and reactive pupils present EOM: EOMs intact bilaterally Direct Ophthalmoscopy: normal light reflex Neck: Neck: normal visual inspection, full ROM and no lymphadenopathy Carotids: normal carotid upstroke Resp: Effort & Inspection: normal respiratory effort and able to speak in complete sentences Auscultation: clear to auscultation bilaterally Cardio: Jugular venous distension: no JVD Rate: regular rate Rhythm: regular rhythm GI: Inspection: normal to inspection Auscultation: normal bowel sounds Skin: General skin exam: normal color and no rashes or lesions noted Neuro: General: oriented to person, oriented to place, oriented to time and Unable to assess gait Cranial nerves: Yes CN's II-XII intact bilaterally and Yes Equal, round and reactive pupils present Cognition (Neuro): normal cognition Speech
== END 2021-04-19 14:08 | disposition home or self-care (01) | DRG 76 ==
LOC: ANHED 08:38 → ANH3MEDSUR 16:13
PROVIDERS: Admitting Provider Student in an Organized Health Care Education/Training Program; Emergency Provider Emergency Medicine; Visit Provider Internal Medicine
DX: A87.9 Viral meningitis, unspecified (principal)
CPT/HCPCS: 36415; 62328; 70450; 70551; 80048; 80053; 80202; 81001; 82565; 82945; 83605; 83690; 84157; 85025; 85610; 85730; 87040; 87070; 87205; 87255; 87529; 87804; 88184; 89051; 96361; 96365; 96366; 96367; 96368; 96375; 96376; 99285; G0378; J0131; J0133; J0696; J1885; J2405; J3370; J7030; J7060

== ENCOUNTER 2021-12-20 14:20 | Outpatient (CLI) | payer OTHER, SELFPAY ==
[2021-12-25 13:37] LABS: Testosterone Total 501 ng/dL (250-1100)
== END 2021-12-20 14:21 | disposition home or self-care (01) ==
DX: R53.83 Other fatigue (principal); R68.82 Decreased libido
CPT/HCPCS: 36415; 84403

== ENCOUNTER 2023-08-13 16:34 | Emergency (ER) | payer OTHER, SELFPAY ==
[2023-08-13] VITALS (7 sets, daily range): BP systolic 125–126; BP diastolic 70–77; PULSE 67–78; RESP 12–27; TEMP 36.7; O2SAT 99–100
--- NOTE | ~2023-08-13 | XR_ITS ---
EXAMINATION: XR chest 2V Exam Date/Time: 08/13/2023 17:25 CDT HISTORY: chest pain ANTERIOR CHEST TIGHTNESS SINCE LAST NIGHT Comparison: None. RESULT: Lines, tubes, and devices: None. Lungs and pleura: Clear. Cardiomediastinal silhouette: Normal. Other: No acute osseous or upper abdominal finding. IMPRESSION: No acute cardiopulmonary process. Reviewed, dictated and finalized at location K.
--- NOTE | 2023-08-13 16:54 | ECG_ITS ---
SEE SCANNED COPY FOR CONFIRMED REPORT. MTDD
[2023-08-13 17:11] LABS: Basophils Percent Auto 0.6 % (0.2-1.2); Eosinophils Absolute Auto 0.1 K/mm3 (0-0.3); Eosinophils Percent Auto 1.8 % (0-4.4); Hematocrit 38.3 % (42.0-52.0); Hemoglobin 13.4 g/dL (14.0-18.0); Immature Granulocyte Absolute 0.01 K/mm3 (0.00-0.031); Immature Granulocyte Percent A 0.2 % (0-0.5); Lymphocytes Absolute Auto 2.48 K/mm3 (0.9-3.2); Lymphocytes Percent Auto 48.5 % (18.3-44.2); Mean Corpuscular Hemoglobin 31.8 pg (26-34); Mean Corpuscular Volume 90.8 fl (80-100); Mean Platelet Volume 9.1 fl (7.4-10.4); Monocytes Absolute Auto 0.3 K/mm3 (0.1-0.6); Monocytes Percent Auto 6.7 % (2.6-8.5); Neutrophils Absolute Auto 2.2 K/mm3 (1.3-6.7); Neutrophils Percent Auto 42.2 % (45.5-73.1); Platelet Count Result 225 k/mm3 (150-375); Red Blood Count 4.22 M/mm3 (4.6-6.20); Red Cell Distribution Width 11.9 % (11.5-14.5); White Blood Count 5.1 K/mm3 (4.5-10.0)
[2023-08-13 17:21] LABS: Alanine Aminotransferase 15 U/L (6-50); Albumin Level 4.7 g/dL (3.5-5.1); Alkaline Phosphatase 48 U/L (38-126); Anion Gap 7 mmol/L (4-12); Aspartate Amino Transferase 23 U/L (17-59); Bilirubin,Total 0.4 mg/dL (0.2-1.3); Blood Urea Nitrogen 18 mg/dL (9-20); Calcium 9.2 mg/dL (8.4-10.2); Carbon Dioxide 25 mmol/L (22-30); Chloride 106 mmol/L (98-107); Estimated CRCL calculation 109 ml/min; Estimated Glomerular Filt Rate > 60; Glucose 95 mg/dL (65-110); Lipase 48 U/L (23-300); Potassium 3.8 mmol/L (3.4-5.0); Sodium 138 mmol/L (137-145)
[2023-08-13 17:22] LABS: Partial Thromboplastin Time 28.8 Seconds (22.3-36.8); Prothrombin Time 13.5 Seconds (11.1-14.7)
[2023-08-13 17:32] LABS: Troponin I < 0.012 ng/mL (0.000-0.034)
--- NOTE | 2023-08-13 18:27 | ED.GENADULT ---
HPI - General Adult General Chief complaint: Chest Pain <Kiersten Jung August, [employer] - Last Filed: 08/13/23 18:30> Stated complaint: STRANGE FEEELING IN CHEST <Kiersten Jung August, [employer] - Last Filed: 08/13/23 18:30> Time Seen by Provider: 08/13/23 18:27 <Kiersten Jung August, [employer] - Last Filed: 08/13/23 18:30> Focused HPI: Noel Chahal is a 23 y/o male who presents with reports of having mid chest tightness that started last night while resting and has not improved. He also reports of intermittent stronger pains to chest. Denies any PMhx no hx of family cardiac hx. Not on any medication. He reports his chest tightness is at a 5/10 at this time. GENERAL: Well-appearing, well-nourished, and in no acute distress. HEAD: Normocephalic, atraumatic. CHEST: Clear to auscultation. ?No respiratory distress. HEART: Regular rate and rhythm.? NEURO: ?Alert and oriented x3. Patient screened in triage and initial orders placed.? ?Additional care and disposition to be based upon?diagnostic testing and treatment. <Kiersten Jung August, [employer] - Last Filed: 08/13/23 18:30> History of Present Illness HPI narrative: 23-year-old male presents to the emergency department for central chest pain that started last night. Patient states he was studying for an exam we began having chest pressure in the middle of his chest. States it has been intermittent since. It is not associated with shortness of breath, radiating symptoms, nausea or vomiting, diaphoresis. He denies cough or congestion, fever, recent surgeries or hospitalizations, hemoptysis, lower extremity edema or calf pain, history of VTE. He does state that he has been under increased stress with finals and upcoming trip and is curious if there is an anxiety component to this. Denies SI or HI. He discussed his symptoms with his parents and was told to come the ED for further evaluation. States he is asymptomatic at this time. He denies any personal history, any family history of CAD or TIA, smoking history. States he uses alcohol occasionally, denies drug use. <Jazmine Garcia PA-C - Last Filed: 08/13/23 23:25> Related Data Home medications: Home Medications Medication Instructions Recorded Confirmed No Home Medications 05/29/21 05/29/21 <Kiersten Jung August, - Last Filed: 08/13/23 18:30> Allergies/adverse reactions: Allergies Allergy/AdvReac Type Severity Reaction Status Date / Time No Known Allergies Allergy Verified 05/29/21 15:45 <Kiersten Jung August, - Last Filed: 08/13/23 18:30> Review of Systems Review of Systems: CONSTITUTIONAL: Denies fever, chills, or sweats. EYES: Denies visual changes, redness, or discharge. ENT: Denies rhinorrhea, congestion, sore throat, or otalgia. CARDIOVASCULAR: See HPI RESPIRATORY: Denies cough or dyspnea. GASTROINTESTINAL: Denies abdominal pain, nausea, vomiting, or diarrhea. GENITOURINARY: Denies dysuria or hematuria. SKIN: Denies rash or itching. MUSCULOSKELETAL: Denies back pain, joint pain, or myalgia. NEUROLOGIC: Denies headache, numbness, or weakness. PSYCHIATRIC: Denies anxiety or depression. <Jazmine Garcia PA-C - Last Filed: 08/13/23 23:25> PMFSH Past Medical History Medical History: Medical History Patient denies significant medical history <Kiersten Jung August, - Last Filed: 08/13/23 18:30> Social History Social History: Social History Smoking status: Never smoker Alcohol intake: never Substance use type: marijuana Other substance usage details: occasionally Spiritual care concerns: No <Kiersten Jung August, [employer] - Last Filed: 08/13/23 18:30> Exam Narrative: GENERAL: Well-appearing, well-nourished, and in no acute distress. HEAD: Normocephalic, atraumatic. EYES: PERRLA and EOMI. ENT: Nares clear, no rhinorrhea or epistaxis. Mucous membranes moist. NECK: Supple. CHEST: Clear to
[2023-08-13 20:26] LABS: D Dimer < 0.27 ug/mL (<0.48)
--- NOTE | 2023-08-13 21:25 | ECG_ITS ---
SEE SCANNED COPY FOR CONFIRMED REPORT MTDD
[2023-08-13 21:48] LABS: Troponin I < 0.012 ng/mL (0.000-0.034)
== END 2023-08-13 23:51 | disposition home or self-care (01) ==
LOC: ANHED 23:41
PROVIDERS: Emergency Medicine; Nurse Practitioner Family; Emergency Provider Physician Assistant
DX: R07.89 Other chest pain (principal); I49.1 Atrial premature depolarization
CPT/HCPCS: 36415; 71046; 80053; 83690; 84484; 85025; 85380; 85610; 85730; 93005; 99284

== ENCOUNTER 2024-02-29 09:29 | Outpatient (CLI) | payer OTHER, SELFPAY ==
[2024-03-04 17:53] LABS: NIL 0.03 IU/mL; Quantiferon TB Plus, 1T NEGATIVE (NEGATIVE); TB1-NIL 0.28 IU/mL; TB2-NIL 0.29 IU/mL
== END 2024-02-29 09:30 | disposition home or self-care (01) ==
DX: Z00.00 Encounter for general adult medical examination without abnormal findings (principal)
CPT/HCPCS: 36415; 86480

== ENCOUNTER 2024-06-24 11:22 | Outpatient (CLI) | payer OTHER, SELFPAY ==
--- NOTE | ~2024-06-24 | MR_ITS ---
EXAMINATION: MR lumbar spine wo con DATE: 06/24/2024 12:02 INDICATION: Low back pain. TECHNIQUE: Magnetic resonance imaging (MRI) of the lumbar spine was performed without intravenous con trast. Sequences included sagittal T2-weighted FSE, sagittal T2-weighted FS FSE, sagittal T1-weighted FSE, and axial T2-weighted FSE. COMPARISON: None FINDINGS: There is 4 degrees levocurvature of lumbar spine. There are chronic bilateral L5 pars defec ts. There are Schmorl's nodes at multiple levels. There is mild chronic anterior wedging of T12 verte bral body. Intervertebral disc heights are normal. The distal spinal cord signal intensity is normal. The conus medullaris is at L1. The following disc levels are specifically discussed: L1-L2: The disc does not extend beyond the endplate margin. There is no facet joint osteoarthritis. T here is no neural foraminal stenosis. There is no central canal stenosis. L2-L3: The disc does not extend beyond the endplate margin. There is mild bilateral facet joint osteo arthritis. There is no neural foraminal stenosis. There is no central canal stenosis. L3-L4: The disc does not extend beyond the endplate margin. There is mild bilateral facet joint osteo arthritis. There is no neural foraminal stenosis. There is no central canal stenosis. L4-L5: The disc does not extend beyond the endplate margin. There is mild bilateral facet joint osteo arthritis. There is no neural foraminal stenosis. There is no central canal stenosis. L5-S1: There is a right central extrusion. There is mild left facet joint osteoarthritis. There is no neural foraminal stenosis. There is mild central canal stenosis. IMPRESSION: 1. Chronic bilateral L5 pars defects. 2. Mild lumbar spondylosis. Reviewed, dictated and finalized at location B.
--- OUTSIDE RECORDS SUMMARY | 2024-06-24 13:17 | XMS_ITS | Clinical Summary ---
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 Gender Identity Not on file Sexual Orientation Not on file Plan of Treatment Health Maintenance Due Date Last Done Comments Varicella Vaccines (1 of 2 - 13+ 2-dose series) 2014 HPV Vaccines (2 - Male 2-dose series) 06/01/2015 11/29/2014 Meningococcal B Vaccine (1 of 2 - Standard) 2017 DTaP,Tdap,and Td Vaccines (7 - Td or Tdap) 09/09/2022 09/09/2012, 08/28/2006, 07/29/2002, Additional history exists COVID-19 Vaccine ( season) 2023 Influenza Vaccine (#1) 2023 9, 01/13/2018, 02/02/2017, Additional history exists RSV Vaccines and 60 Years or Older (1 - 1-dose 75+ series) 2076 HIB Vaccines Completed 07/29/2002, 01/13, 2001, Additional history exists Hepatitis B Vaccines Completed 07/29/2002, 2001, 2001 IPV Vaccines Completed 08/28/2006, 01/13, 2001, Additional history exists MMR Vaccines Completed 08/28/2006, 07/29/2002 Meningococcal ACWY Vaccine Completed 11/12/2018, AMB Pneumococcal 0-64 yrs Aged Out No longer eligible based on patient's age to complete this topic Hepatitis A Vaccines Aged Out No long er eligible based on patient's age to complete this topic RSV Vaccines <20 Months Aged Out No l onger eligible based on patient's age to complete this topic Insurance LIABILITY Care Teams Account Executive Sales Representative Relationship Special[place] [address] PCP - General Family Medicine 05/26/19
--- OUTSIDE RECORDS SUMMARY | 2024-06-24 13:17 | XMS_ITS | Continuity of Care Document ---
Author Organization [facility] Address [address] [place] [address] Phone Care Team Providers Care Bedspread Folder Name Role Phone José Thakur PA-C Unavailable Unavailable Allergies, Adverse Reactions, Alerts Substance Reaction Status Criticality No Known Allergies Active No Inform ation Medications Medication Instructions Dosage Effective Dates (start - stop) Status Comments Mobic 7.5 mg tablet take 1 tablet by ora l route every day - Active Procedures Procedure Date Office/outpatient visit,est, mod 2021 Office/outpatient visit,est, mod 2020 Office/outpatient visit,est, mod 2019 Office/outpatient visit,est, mod 2019 Office/outpatient visit,est, mod 2019 Office/outpatient visit,est, mod 2019 Office/outpatient visit,est, mod 2019 Postop followup visit Knee Xray 1 Or 2 Views Postop followup visit Knee Orthosis, Adjustable Knee Joints, P ositiona Knee arthroscopy/repair ligament 2019 PA At Surgery Knee Arthscpy ACL Reconstruction Or Repa ir Knee Arthscpy Meniscus Repair Medial OR Lateral Office/outpatient visit,est, mod 2019 Office/outpatient visit,est, mod 2019 Knee Xray 1 Or 2 Views Knee Xray Both Knees Standing AP 2019 Office consultation, moderate-high Advance Directives Directive Yes / No Effective Date File Name No Information Encounters Encounter Description Practice Location Reason(s) For Visit Diagnoses Date Provider Providers Copied on Encounter [facility], [address] [place] [address], [id number], tel:[phone] [facility] No Information 3 Blaze Kumar. [address], [place], [id number] , . tel:[phone] Office/outpa tient visit,[facility], [facility], [address] [place] [address], [id number], tel:[phone] [facility] Sprain of other ligament of right knee, subsequent encounter 2 Harsha Leal. [address] [place] [address], [id number] , [place]. tel:[phone] Office/outpa tient visit,est, [facility], [address] [place] [address], [id number], tel:[phone] [facility] knee (chief complaint) Sprain of anterior cruciate ligament of right knee, subs 1 Harsha Leal. [address] [place] [address], [id number] , . tel:[phone] Office/outpa tient visit,est, [facility], [address] [place] [address], [id number], tel:[phone] [facility] knee (chief complaint) Unsp tear of unsp meniscus, current injury, right knee, subs 0 Harsha Leal. [address], [place], [id number] , . [phone] Office/outpa tient visit,[facility], [facility], [address] [place] [address], [id number], tel:[phone] [facility] knee (chief complaint) Sprain of anterior cruciate ligament of right knee, subs Nov-0 3 0 Harsha Leal. [address], [place], [id number] , . tel: [phone] Office/outpa tient visit,est, [facility], [address] [place] [address], [id number], tel:[phone] [facility] Acute meniscal tear of right knee, subsequent encounterPain in right knee Tavon-0 0 Harsha Leal. [address], [place], [id number] , [place]. tel: [phone] Office/outpa tient visit,est, [facility], [address] [place] [address], [id number], tel:[phone] [facility] knee (chief complaint) Pain in right kneeSprain of anterior cruciate ligament of right knee, subs Daniel- 0- 0 Thakur José. [address], [place], [id number] , [place]. tel: [phone] Office/outpa tient visit,est, [facility], [address] [place] [address], [id number], tel:[phone] [facility] knee (chief complaint) Pain in right kneeSprain of anterior cruciate ligament of right knee, subs Jul-2 0 Thakur José. [address], [place], [id number] , [place]. tel: [phone] [facility], [address] [place] [address], [id number], [place] tel:[phone] [facility] knee (chief complaint) Sprain of anterior cruciate ligament of right knee, subs 0 0 Harsha Leal. [address], [place], [id number] , [place]. tel: [phone] [facility], [address] [place] [address], [id number], tel:[phone] [facility] knee (chief complaint) Pain in right kneeRight calf painRight leg swellingSprain of anterior cruciate ligament of right knee, subs 0 Blaze Kumar. [address], [place], [id number] , . tel:[phone] [facility], [address] [place] [address], [id number], tel:[phone] [facility] No Information 0 Harsha Leal. [address], [place], [id number] , [place]. tel:[phone] Referring Provider: Elvis Lewis, [address] [place] [address], [id number]. tel:[phone] [facility], [address] [place] [address], [id number], tel:[phone] [facility] No Information 0 Blaze Kumar. [address] [place] [address], [id number] , . tel: [phone] [facility], [address] [place] [address], [id number], tel:[phone] [facility] No Information 0 Harsha Leal. [address] [place] [address], [id number] , . tel: [phone] Office/outpa tient visit,est, mod [facility], [address] [place] [address], [id number], tel:[phone] [facility] knee (chief complaint) Pain in right kneeSprain of anterior cruciate ligament of right knee, subs 0 Harsha Leal. [address] [place] [address], [id number] , . tel: [phone] Office/outpa tient visit,est, mod [facility], [address] [place] [address], [id number], tel:[phone] [facility] knee (chief complaint) Sprain of anterior cruciate ligament of right knee, subsequent encounterPain in right kneeRupture of anterior cruciate ligament of right kne 0 Harsha Leal. [address], [place], [id number] , [place]. tel:[phone] Office consultation , moderate-hig h [facility], [address], [place], [id number], [place] tel:[phone] [facility] knee (chief complaint) Pain in right kneeRupture of anterior cruciate ligament of right knee, initial encounterRuptur e of anterior cruciate ligament of right kne 0 Harsha Leal. [address], [place], [id number] , [place]. tel:[phone] Referring Provider: Colt Bedolla, [address] [facility], [place], [address]. tel:[phone] Family History Family Member Type Diagnosis Age At Onset No Information Payers Payer name Insurance type Covered constitution party ID Authoriza tidinh(s) [employer] CI [id number] Social History Type Description Quantity Date Captured Comments Sex Male Smoking Status No Information Gender Identity Male Chief Complaint And Reason For Visit No Information Reason For Referral Reason For Referral No Information Plan Of Treatment Date Type Action Status Goal Tobacco cessation counseling completed Future Order: Radiology Order MR I Lower Ext Any Joint W/O Contrast ([id number]), Ordered on: Ordered Future Order: Radiology Order Ve nous Doppler Unilateral Limited ([id number]), Ordered on: Ordered Future Order: Radiology Order Kn ee Xray 1 Or 2 Views ([id number]), Ordered on: Ordered Future Order: Radiology Order Kn ee Xray 1 Or 2 Views ([id number]), Ordered on: Ordered Future Order: Radiology Order Kn ee Xray Both Knees Standing AP ([id number]), Ordered on: Ordered History Of Present Illness Encounter Date Complaint History Of Prese nt Illness knee knee knee knee knee knee knee knee knee knee Functional Status Date Functional Assessmen t No Information Instructions Date Instruction Additional Infor mation No Information Assessments Type Assessment Date No Information Patient Care Teams Name Effective Dates (start - stop) Status Members No Information
--- OUTSIDE RECORDS SUMMARY | 2024-06-24 13:17 | XMS_ITS | Clinical Summary ---
Author Organization [facility] [address] [place] Address [address] [place] [address] Care Team Providers Care Deicer Inspector Pneumatic Name Role Phone Unknown, Notinfile Primary Care Provider Unavail able Allergies No known active allergies Medications loratadine (CLARITIN) 10 mg tablet Take 1 tablet (10 mg total) by mouth daily Active azithromycin (ZITHROMAX) 250 mg tablet Take 2 tabs (500 mg) by mouth today, than 1 tab (250 mg) daily for 4 days. 6 tablet 4 Active benzonatate (TESSALON) 200 mg capsuleIndicati ons:Acute cough Take 1 capsule (200 mg total) by mouth 3 (three) times a day as needed for cough 30 capsule 4 Active methylPREDNISol one (MEDROL DOSEPACK) 4 mg DosepackIndicat ions:Subacute cough Take 6 tabs on day 1, reduce dose by 1 daily until prescription is complete. 1 packet 4 Active Active Problems No known active problems Social History Tobacco Use Types Packs/Day Years Used Date Smoking Tobacco: Never Assessed Sex and Gender Information Value Date Recorded Sex Assigned at Not on file Legal Sex Male 10:11 AM COUNCILPERSON Gender Identity Not on file Sexual Orientation Not on file Obstetrics History Last Filed Vital Signs Vital Sign Reading Time Taken Comments Blood Pressure 130/70 03/18/2024 11:47 AM COUNCILPERSON Pulse 77 03/18/2024 11:47 AM COUNCILPERSON Temperature 36.9 C (98.4 F) 03/18/2024 11:47 AM COUNCILPERSON Respiratory Rate 20 03/18/2024 11:47 AM COUNCILPERSON Oxygen Saturation 98% 03/18/2024 11:47 AM COUNCILPERSON Inhaled Oxygen Concentration - - Weight 91.2 kg (201 lb) 03/18/2024 11:47 AM COUNCILPERSON Height 180.3 cm (5' 11 ) 03/18/2024 11:47 AM COUNCILPERSON Body Mass Index 28.03 03/18/2024 11:47 AM COUNCILPERSON Plan of Treatment Health Maintenance Due Date Last Done Comments Depression Screening 2001 Hepatitis C Screening 2001 Varicella Vaccines (1 of 2 - 13+ 2-dose series) 2014 HPV Vaccines (2 - Male 2-dose series) 06/01/2015 11/29/2014 Meningococcal B Vaccine (1 of 2 - Standard) 2017 Regular Well Visit/Exam 18-64 2019 DTaP/Tdap/Td Vaccine (8 - Td or Tdap) 02/18/2033 02/18/2023, 09/09/2012, 08/28/2006, Additional history exists Hepatitis B Screening Completed 07/29/2002 , 2001, 2001 Influenza Vaccine Completed 01/27/2024, , 01/29/2020, Additional history exists Pneumococcal vaccine <65 Aged Out No longer eligible based on patient's age to complete this topic Insurance [facility] [id number] Care Teams Deicer Inspector Pneumatic Relationship Specialty Start Date End Date Unknown, Notinfile PCP - General 02/25/24
--- OUTSIDE RECORDS SUMMARY | 2024-06-24 13:17 | XMS_ITS | Referral Summary ---
Author Organization [facility] [address] [place] Address [address] [place] [address] Care Team Providers Care Cloth Doffer Name Role Phone Unknown, Notinfile Primary Care [...] on file Legal Sex Male 10:11 AM COCOA MILL OPERATOR Gender Identity Not on file Sexual Orientation Not on file Last Filed Vital Signs Vital Sign Reading Time Taken Comments Blood Pressure 130/70 03/18/2024 11:47 AM COCOA MILL OPERATOR Pulse 77 03/18/2024 11:47 AM COCOA MILL OPERATOR Temperature 36.9 C (98.4 F) 03/18/2024 11:47 AM COCOA MILL OPERATOR Respiratory Rate 20 03/18/2024 11:47 AM COCOA MILL OPERATOR Oxygen Saturation 98% 03/18/2024 11:47 AM COCOA MILL OPERATOR Inhaled Oxygen Concentration - - Weight 91.2 kg (201 lb) 03/18/2024 11:47 AM COCOA MILL OPERATOR Height 180.3 cm (5' 11 ) 03/18/2024 11:47 AM COCOA MILL OPERATOR Body Mass Index 28.03 03/18/2024 11:47 AM COCOA MILL OPERATOR Plan of Treatment Not on file Insurance [facility] [id number] Care Teams Cloth Doffer Relationship Specialty Start Date End Date Unknown, Notinfile PCP - General 02/25/24
== END 2024-06-24 11:23 | disposition home or self-care (01) ==
DX: M47.816 Spondylosis without myelopathy or radiculopathy, lumbar region (principal)
CPT/HCPCS: 72148

== ENCOUNTER 2024-12-03 05:48 | Emergency (ER) | payer OTHER, SELFPAY ==
--- NOTE | ~2024-12-03 | CT_ITS ---
CT of the Abdomen and Pelvis: Indication: Abdominal pain Technique: 2.5 mm axial scans were obtained through the abdomen and pelvis following intravenous administration of 100 cc of Omnipaque 350. Dose reduction technique was used on this scan by utilizing automated exposure control and iterative reconstruction technique. The dose-length product (DLP) was 458.28 mGy-cm. Findings: Scans through the lung bases are unremarkable. The liver, spleen, pancreas, gallbladder, adrenals and kidneys are within normal limits. No evidence of aortic aneurysm. No lymphadenopathy. No bowel obstruction or bowel wall thickening. There is no evidence to suggest acute appendicitis. Images through the pelvis were performed. Urinary bladder unremarkable. No pelvic mass seen. Trace pelvic ascites. Bilateral L5 pars interarticularis defects are present. No subluxation. Impression: Trace pelvic ascites, otherwise no significant abnormality seen. Bilateral L5 pars interarticularis defects are noted. Reviewed, dictated and finalized at [facility]. Impression: Trace pelvic ascites, otherwise no significant abnormality seen. Bilateral L5 pars interarticularis defects are noted.
[2024-12-03 05:51] VITALS: BP 136/76; PULSE 97; RESP 16; TEMP 37; O2SAT 94
[2024-12-03] MEDS: SODIUM CHLORIDE 0.9% IV 1,000 ML 999 ML IV CONT (06:05)
[2024-12-03] MEDS: ONDANSETRON INJ 4 MG/2 ML VIAL IV PUSH (06:05)
[2024-12-03 06:13] LABS: Hematocrit 40.1 % (42.0-52.0); Hemoglobin 14.1 g/dL (14.0-18.0); Immature Granulocyte Percent A 0.4 % (0-0.5); Lymphocytes Absolute Auto 0.97 K/mm3 (0.9-3.2); Mean Corpuscular HGB Conc 35.2 g/dl (32-36); Mean Corpuscular Hemoglobin 31.8 pg (26-34); Mean Corpuscular Volume 90.5 fl (80-100); Nucleated Red Blood Cells Absolute Auto 0.000 K/mm3 (0.0-0.012); Nucleated Red Blood Cells Perc 0.0 % (0.0-0.2); Platelet Count Result 178 k/mm3 (150-375); Red Blood Count 4.43 M/mm3 (4.6-6.20); White Blood Count 5.2 K/mm3 (4.5-10.0)
[2024-12-03 06:15] LABS: Add Urine Microscopic? NO; Appearance Urine Clear (Clear); Glucose Urine UA Negative (Negative); Leukocyte Esterase Ur Negative LEU/UL (Negative); Nitrate Urine Negative (Negative); Specific Grav Ur 1.020 (1.001-1.035)
[2024-12-03 06:21] LABS: Magnesium 1.6 mg/dL (1.6-2.3)
--- NOTE | 2024-12-03 06:21 | ED_ITS ---
HPI - General Adult General Chief complaint: Nausea/Vomiting/Diarrhea Stated complaint: abd pain, nausea, diarrhea 20 x daily Time Seen by Provider: 12/03/24 05:54 History of Present Illness HPI narrative: Patient is a 24-year-old male who presents to the emergency department this morning complaining of nausea, vomiting, diarrhea and generalized abdominal pain for the past 3 days. Patient states that he was recently traveling at the [place] of the [facility]. Denies any sick contacts at home or any family members with similar symptoms. Related Data Allergies Allergy/AdvReac Type Severity Reaction Status Date / Time No Known Allergies Allergy Verified 05/29/21 15:45 Review of Systems 2 Review of Systems: All systems are reviewed and are negative unless stated otherwise in the HPI. [facility] Past Medical History Medical History Meningitis Patient denies significant medical history Surgical History Surgical History History of anterior cruciate ligament surgery Social History Social History Smoking status: Never smoker Alcohol intake: never Substance use: never Substance use type: marijuana Other substance usage details: occasionally Spiritual care concerns: No Exam 2 Narrative: General: Alert, awake, afebrile, in no acute distress. HEENT: PERRL, no rhinorrhea, no post nasal drip, oropharynx clear. Neck: Trachea midline, no JVD, no lymphadenopathy. Cardiovascular: Regular rate and rhythm, no murmurs, rubs or gallops, no peripheral edema. Respiratory: Clear to auscultation bilaterally, no tachypnea, no wheezing, no rhonchi, no rubs, no respiratory distress. Abdomen: Soft, nontender, nondistended, no rebound, no guarding, no peritoneal signs. Musculoskeletal: No joint swelling or deformity, normal muscle tone. Skin: No rashes or petechia, no signs of infection. Psychiatric: Alert and oriented, normal behavior and judgment for situation. Neurological: Alert and oriented to person, place, and time. Follows all commands. No focal deficits, speech is clear and fluent. Course Vital Signs Vital signs: Vital Signs Temperature 98.6 F 12/03/24 05:51 Pulse Rate 97 12/03/24 05:51 Respiratory Rate 16 12/03/24 05:51 Blood Pressure 136/76 12/03/24 05:51 Pulse Oximetry 94 12/03/24 05:51 Oxygen Delivery Room Air 12/03/24 05:51 Temperature 98.6 F 12/03/24 05:51 Pulse Rate 97 12/03/24 05:51 Respiratory Rate 16 12/03/24 05:51 Blood Pressure 136/76 12/03/24 05:51 Pulse Oximetry 94 12/03/24 05:51 Oxygen Delivery Room Air 12/03/24 05:51 Medical Decision Making MDM Narrative Medical decision making narrative: The patient was evaluated by myself in the emergency department. History is obtained from patient who is an independent historian and physical exam was performed. External medical records were reviewed at this time. IV was established and pertinent tests were ordered. Patient was administered 1 L IV fluid bolus with normal saline and 4 mg IV Zofran for nausea/vomiting. Laboratory results obtained revealing no acute process. Urinalysis unremarkable. Imaging studies obtained included CT abdomen pelvis with IV contrast which was independently interpreted by me revealing no acute process, which is pending final radiology interpretation. Differential diagnosis considerations include gastroenteritis, colitis, dehydration, electrolyte derangements, pancreatitis, appendicitis. Comorbidities impacting this visit include none. I have evaluated and discussed social determinants of health with the patient that could potentially impact subsequent diagnosis and treatment plans. On repeat assessment of the patient, reevaluation revealed that the patient is doing well and is in no acute distress. Patient symptoms have improved since he arrived to our emergency department. Repeat vital signs were all reviewed and noted to be stable. Differential diagnosis and treatment plan were discussed with the patient at bedside. Patient agrees with discussion and after shared medical decision making agrees with discharge. All questions were answered to the patient's satisfaction. Patient will follow up with his PCP in 3-5 days. Patient was provided with strict return precautions and instructed to return to the emergency department if any new or worsening symptoms develop. The patient was discharged in stable condition. Vital Signs Vital Signs: Vital Signs Temperature 98.6 F 12/03/24 05:51 Pulse Rate 97 12/03/24 05:51 Respiratory Rate 16 12/03/24 05:51 Blood Pressure 136/76 12/03/24 05:51 Pulse Oximetry 94 12/03/24 05:51 Oxygen Delivery Room Air 12/03/24 05:51 Temperature 98.6 F 12/03/24 05:51 Pulse Rate 97 12/03/24 05:51 Respiratory Rate 16 12/03/24 05:51 Blood Pressure 136/76 12/03/24 05:51 Pulse Oximetry 94 12/03/24 05:51 Oxygen Delivery Room Air 12/03/24 05:51 Lab Data 12/03/24 05:56 12/03/24 05:56 Labs: Lab Results 12/03/24 12/03/24 Range/Units 05:56 05:58 WBC 5.2 (4.5-10.0) K/mm3 RBC 4.43 L (4.6-6.20) M/mm3 Hgb 14.1 (14.0-18.0) g/dL Hct 40.1 L (42.0-52.0) % MCV 90.5 (80-100) fl MCH 31.8 (26-34) pg MCHC 35.2 (32-36) g/dl RDW 11.5 (11.5-14.5) % Plt Count 178 (150-375) k/mm3 MPV 9.2 (7.4-10.4) fl Immature Gran % (Auto) 0.4 (0-0.5) % Neut % (Auto) 68.6 (45.5-73.1) % Lymph % (Auto) 18.5 (18.3-44.2) % [place] % (Auto) 9.2 H (2.6-8.5) % Eos % (Auto) 2.5 (0-4.4) % Baso % (Auto) 0.8 (0.2-1.2) % Lymph # (Auto) 0.97 (0.9-3.2) K/mm3 [place] # (Auto) 0.5 (0.1-0.6) K/mm3 Eos # (Auto) 0.1 (0-0.3) K/mm3 Baso # (Auto) 0.0 (0.0-0.1) K/mm3 Abs Immat Gran (auto) 0.02 (0.00-0.031) K/mm3 Absolute Neuts (auto) 3.6 (1.3-6.7) K/mm3 Absolute Nucleated RBC 0.000 (0.0-0.012) K/mm3 Nucleated RBC % 0.0 (0.0-0.2) % Sodium 134 L (137-145) mmol/L Potassium 3.7 (3.4-5.0) mmol/L Chloride 103 (98-107) mmol/L Carbon Dioxide 22 (22-30) mmol/L Anion Gap 9 (4-12) mmol/L BUN 13 D (9-20) mg/dL Creatinine 1.15 (0.7-1.3) mg/dL Estim Creat Clear Calc 95 ml/min Estimated GFR > 60 (59 - ) Glucose 117 H (65-110) mg/dL Calcium 9.3 (8.4-10.2) mg/dL Magnesium 1.6 (1.6-2.3) mg/dL Total Bilirubin 0.6 (0.2-1.3) mg/dL AST 30 (17-59) U/L ALT 21 (6-50) U/L Alkaline Phosphatase 58 (38-126) U/L Total Protein 7.5 (6.3-8.2) g/dL Albumin 4.6 (3.5-5.1) g/dL Lipase 39 (23-300) U/L Urine Color Yellow (Yellow) Urine Appearance Clear (Clear) Urine pH 5.5 (5.0-9.0) Ur Specific [place] 1.020 (1.001-1.035) Urine Protein Negative (Negative) mg/dL Urine Glucose (UA) Negative (Negative) mg/dL Urine Ketones Trace H (Negative) mg/dL Ur Blood (Man) Negative (Negative) Urine Nitrate Negative (Negative) Urine Bilirubin Negative (Negative) Urine Urobilinogen 0.2 (<2.0) mg/dL Leukocyte Esterase Rfl Negative (Negative) THANIA/UL Discharge Plan Discharge Clinical Impression: Gastroenteritis Patient Disposition: Home Condition: Improved Instructions: Antibiotic Form, Gastroenteritis (ED) Additional Instructions: Please follow-up with the family doctor within the next 3-5 days. Return to emergency department if any new or worsening symptoms develop. Use the prescribed Zofran as needed for nausea/vomiting. Maintain your oral hydration by drinking lots of fluids. Patient Language: Citizen Of [place] Prescriptions: New ondansetron 4 mg tablet,disintegrating 4 mg PO Q8H PRN (Reason: nausea and vomiting) Qty: 10 0RF Follow-up/Referrals: Michael Johnson MD [Primary Care Provider, Family Practice] - 3 Days
[2024-12-03 06:30] LABS: Alanine Aminotransferase 21 U/L (6-50); Albumin Level 4.6 g/dL (3.5-5.1); Alkaline Phosphatase 58 U/L (38-126); Anion Gap 9 mmol/L (4-12); Aspartate Amino Transferase 30 U/L (17-59); Bilirubin,Total 0.6 mg/dL (0.2-1.3); Blood Urea Nitrogen 13 mg/dL (9-20); Calcium 9.3 mg/dL (8.4-10.2); Carbon Dioxide 22 mmol/L (22-30); Chloride 103 mmol/L (98-107); Estimated CRCL calculation 95 ml/min; Estimated Glomerular Filt Rate > 60; Glucose 117 mg/dL (65-110); Lipase 39 U/L (23-300); Potassium 3.7 mmol/L (3.4-5.0); Sodium 134 mmol/L (137-145); Total Protein 7.5 g/dL (6.3-8.2)
[2024-12-03 07:04] VITALS: BP 128/62; PULSE 61; RESP 18; O2SAT 99
== END 2024-12-03 07:06 | disposition home or self-care (01) ==
PROVIDERS: Emergency Provider Emergency Medicine; PCP Family Medicine
DX: K52.9 Noninfective gastroenteritis and colitis, unspecified (principal)
CPT/HCPCS: 36415; 74177; 80053; 81003; 83690; 83735; 85025; 96361; 96374; 99284; J2405; J7030; Q9967

== ENCOUNTER 2024-12-05 06:01 | Emergency (ER) | payer OTHER, SELFPAY ==
--- OUTSIDE RECORDS SUMMARY | 2024-09-23 04:09 | XMS_ITS | Continuity of Care Document ---
Author Organization [facility] Address [address] [place] [address] Phone Care Team Providers Care Hvac Estimator Name Role Phone Lucas PT,MPT,ATC, Ja Unavailable Unavai lable Procedures Procedure Date Therapeutic Activities Neuromuscular Re-Ed Therapeutic Exercise Therapeutic Activities Neuromuscular Re-Ed Therapeutic Exercise Therapeutic Activities Neuromuscular Re-Ed Therapeutic Exercise PT Evaluation Moderate Complexity Therapeutic Activities Neuromuscular Re-Ed Therapeutic Exercise Advance Directives Directive Yes / No Effective Date File Name No Information Encounters Encounter Description Practice Location Reason(s) For Visit Diagnoses Date Provider Providers Copied on Encounter [facility] [facility], [place], [place], [id number], tel:[phone] [place] No Information 5 Lucas Peres. , [place], [place]. [facility], [place], [place], [id number], tel:[phone] [place] No Information 5 Ana Maria Dykes. . Referring Provider: Mery Do, [address] [place] [address], [address]. tel:[phone] [facility], [place], [place], [id number], tel:[phone] [place] No Information 5 Thomas Etienne. . Referring Provider: Mery Do, [address] [place] [address], [address]. tel:[phone] [facility], [address] [address], [place], [place], [id number], tel:[phone] [place] No Information 5 [place], [place], . Referring Provider: Mery Do, [address] [place] [address], [address]. tel:[phone] [facility] [address] [address], [place], [place], [id number], tel:[phone] [place] No Information 5 [place], [place], . Referring Provider: Mery Do, [address] [place] [address], [address]. tel:[phone] Family History Family Member Type Diagnosis Age At Onset No Information Payers Payer name Insurance type Covered democrat ID Jennifer brush(s) [employer] CI [id number] Social History Type Description Quantity Date Captured Comments Sex Male Smoking Status No Information Chief Complaint And Reason For Visit No Information Reason For Referral Reason For Referral No Information History Of Present Illness Encounter Date Complaint History Of Prese nt Illness No Information Functional Status Date Functional Assessmen t No Information Instructions Date Instruction Additional Infor mation No Information Assessments Type Assessment Date No Information Patient Care Teams Name Effective Dates (start - stop) Status Members No Information
--- OUTSIDE RECORDS SUMMARY | 2024-09-23 04:09 | XMS_ITS | Continuity of Care Document ---
Author Organization [facility] Address [address] [place] [address] Phone Care Team Providers Care Career Consultant Name Role Phone Lucas PT,MPT,ATC, Ja Unavailable [...] Diagnoses Date Provider Providers Copied on Encounter [facility] [facility], [place], [place], [id number], tel:[phone] [place] No Information 5 Lucas Peres. , [place], [place]. [facility], [place], [place], [id number], tel:[phone] [place] No Information 5 Ana Maria Dykes. . Referring Provider: Mery Do, [address] [place] [address], [address]. tel:[phone] [facility], [place], [place], [id number], tel:[phone] [place] No Information 5 Thomas Etienne. . Referring Provider: Mery Do, [address] [place] [address], [address]. tel:[phone] [facility], [address] [address], [place], [place], [id number], tel:[phone] [place] No Information 5 [place], [place], . Referring Provider: Mery Do, [address] [place] [address], [address]. tel:[phone] [facility] [address] [address], [place], [place], [id number], tel:[phone] [place] No Information 5 [place], [place], . Referring Provider: Mery Do, [address] [place] [address], [address]. tel:[phone] Family History Family Member Type Diagnosis Age At Onset No Information Payers Payer name Insurance type Covered democrat ID Jennifer brush(s) RRsat CI [id number] Social History Type Description Quantity Date Captured [...]
--- OUTSIDE RECORDS SUMMARY | 2024-12-04 12:30 | XMS_ITS | Encounter Summary ---
Author Organization [facility] Healthcare Address [address] [place] [address] Care Team Providers Care Tube Bender Hand Name Role Phone Unknown, Notinfile Primary Care Provider Unavail able Unknown, Notinfile Unavailable Unavailable Reason for Visit * Reason Comments Dental Pain Pain on bottom L gurpreet e of teeth and c/o pain is 10/10 started 1 week ago Encounter Details Date Type Department Care Team (Late st Contact Info) Description 12/04/2024 12:30 PM CDT Office Visit [facility] at [address] [id number] Allison Barreto NP [address] [place] [address] [address] [place] [address] Pain, dental (Primary Dx) Social History Tobacco Use Types Packs/Day Years Used Date Smoking Tobacco: Never Assessed AUDIT-C Answer Date Recorded Q1: How often do you have a drink containing alcohol? Never 08/24/2024 Q2: How many drinks containi ng alcohol do you have on a typical day when you are drinking? Patient does not drink Q3: How often do you have si x or more drinks on one occasion? 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 Gender Identity Not on file Sexual Orientation Not on file documented as of this encounter Last Filed Vital Signs Vital Sign Reading Time Taken Comments Blood Pressure 110/62 12/04/2024 12:42 PM CDT Pulse 87 12/04/2024 12:42 PM CDT Temperature 36.2 C (97.1 F) 12/04/2024 12:42 PM CDT Respiratory Rate 16 12/04/2024 12:42 PM CDT Oxygen Saturation 97% 12/04/2024 12:42 PM CDT Inhaled Oxygen Concentration - - Weight 82.6 kg (182 lb) 12/04/2024 12:42 PM CDT Height - - Body Mass Index 25.4 08/24/2024 8:00 AM CDT documented in this encounter Patient Instructions * Patient Instructions* Allison Barreto NP - 12/04/2024 12:30 PM CDT If you have no improvement or worsening of your symptoms, please follow up with your Primary Care Provider, Convenient Care and or Emergency Room. I strive to provide you with EXCELLENT service. You may receive a survey after your visit today. If you cannot rate your experience as EXCELLENT, please let us know how we can improve and better meet your needs. Thank you for choosing [facility]! It was my pleasure to see you today, I hope you feel better soon! Allison Barreto OVEN DAUBER * Attachments The following attachments cannot be sent through Care Everywhere. * Dental Cavities (Switchboard Operator Supervisor) ([place]) * Toothache (AfterCare(R) Instructions(ER/ED)) ([place]) documented in this encounter Ordered Prescriptions Prescription Sig Dispense Quantity Refills Last Filled Start Date End Date clindamycin (CLEOCIN) 300 mg capsuleIndications :Pain, dental Take 1 capsule (300 mg total) by mouth 3 (three) times a day for 10 days 30 capsule 12/04/2024 5 lidocaine viscous (XYLOCAINE) 2 % solutionIndication s:Pain, dental Apply to lesions every six hours as needed for discomfort. Do not exceed maximum dose of of 4 times daily. 100 mL 12/04/2024 documented in this encounter Progress Notes * Allison Barreto NP - 12/04/2024 12:30 PM CDT Images from the original note were not included. Subjective/Objective Patient ID: Noel Chahal is a 24 y.o. male. This patient has verbally consented to recording this visit in order to utilize AI technology in generating this note. Chief Complaint Dental Pain (Pain on bottom L side of teeth and c/o pain is 10/10 started 1 week ago) History of Present Illness Noel Chahal is a 24 year old male who presents with pain in the bottom left wisdom tooth. He has experienced a constant ache in the bottom left wisdom tooth for about a week, with pain sometimes making it difficult to talk. The pain has persisted and worsened compared to previous intermittent episodes. There is a sensation of a hole or indent near the tooth, closer to the cheek. He has no difficulty swallowing, and air does not cause discomfort. He has a dentist appointment scheduled for December 29 and is concerned about the timing of dental procedures due to his school schedule, with availability only on Tuesdays. Review of Systems All other systems reviewed and are negative. Physical Exam Physical Exam Vitals reviewed. Constitutional: Appearance: Normal appearance. He is normal weight. HENT: Head: Normocephalic. Right Ear: External ear normal. Left Ear: External ear normal. Mouth/Throat: Mouth: Mucous membranes are moist. Dentition: Dental tenderness and dental abscesses present. No dental caries. Comments: Small opening in gumline just above the left lower impacted wisdom tooth, possible abscess. No difficulty swallowing. Eyes: Pupils: Pupils are equal, round, and reactive to light. Cardiovascular: Rate and Rhythm: Normal rate. Pulmonary: Effort: Pulmonary effort is normal. Neurological: Mental Status: He is alert. Vitals: 12/04/24 1242 BP: 110/62 Pulse: 87 Resp: 16 Temp: 36.2 ??C (97.1 ??F) SpO2: 97% Weight: 82.6 kg (182 lb) No results found. No past medical history on file. Current Outpatient Medications: azithromycin (ZITHROMAX) 250 mg tablet, Take 2 tabs (500 mg) by mouth today, than 1 tab (250 mg) daily for 4 days. (Patient not taking: Reported on 12/04/2024), Disp: 6 tablet, Rfl: 0 benzonatate (TESSALON) 200 mg capsule, Take 1 capsule (200 mg total) by mouth 3 (three) times a dayas needed for cough (Patient not taking: Reported on 12/04/2024), Disp: 30 capsule, Rfl: 0 clindamycin (CLEOCIN) 300 mg capsule, Take 1 capsule (300 mg total) by mouth 3 (three) times a day for 10 days, Disp: 30 capsule, Rfl: 0 cyclobenzaprine (FLEXERIL) 10 mg tablet, Take 1 tablet (10 mg total) by mouth 3 (three) times a dayas needed for muscle spasms (Patient not taking: Reported on 12/04/2024), Disp: 20 tablet, Rfl: 0 lidocaine viscous (XYLOCAINE) 2 % solution, Apply to lesions every six hours as needed for discomfort. Do not exceed maximum dose of of 4 times daily., Disp: 100 mL, Rfl: 0 loratadine (CLARITIN) 10 mg tablet, Take 1 tablet (10 mg total) by mouth daily (Patient not taking:Reported on 12/04/2024), Disp: , Rfl: methylPREDNISolone (MEDROL DOSEPACK) 4 mg Dosepack, Take 6 tabs on day 1, reduce dose by 1 daily until prescription is complete. (Patient not taking: Reported on 12/04/2024), Disp: 1 packet, Rfl: 0 No Known Allergies Social History Tobacco Use Smoking status: Not on file Smokeless tobacco: Not on file Substance and Sexual Activity Drug use: Not on file Sexual activity: Not on file Alcohol Use: Not At Risk (08/24/2024) AUDIT-C Frequency of Alcohol Consumption: Never Average Number of Drinks: Patient does not drink Frequency of Binge Drinking: Never No past surgical history on file. Procedures Assessment/Plan Results No results found for this or any previous visit (from the past 4 hours). Assessment & Plan Possible periapical abscess of left lower impacted wisdom tooth Intermittent pain suggests possible periapical abscess on the buccal side. Tooth may be impacted. Discussed scheduling extraction on a Saturday for weekend recovery. - Prescribed clindamycin TID for 10 days. - Prescribed viscous lidocaine for topical pain relief. - Advised acetaminophen and ibuprofen for pain management. - Recommended contacting dentist for cancellation list for earlier appointment. Diagnoses and all orders for this visit: Pain, dental (Primary) - lidocaine viscous (XYLOCAINE) 2 % solution; Apply to lesions every six hours as needed for discomfort. Do not exceed maximum dose of of 4 times daily. - clindamycin (CLEOCIN) 300 mg capsule; Take 1 capsule (300 mg total) by mouth 3 (three) times a day for 10 days Disposition Treatment plan including expectations, follow up, and return precautions discussed with patient/parent, verbalizes understanding. Medication dosage, use, and potential adverse reactions discussed with patient/parent. Advised to follow up with PCP if symptoms do not resolve as expected or sooner if condition worsens. Signs/symptoms warranting ER evaluation reviewed. Patient and/or guardian was given an opportunity to ask questions, questions answered. Allison Barreto NP documented in this encounter Plan of Treatment Not on file documented as of this encounter Visit Diagnoses Diagnosis Pain, dental- Primary documented in this encounter Care Teams Tube Bender Hand Relationship Specialty Start Date End Date Unknown, Notinfile PCP - General 08/14/24 Unknown, Notinfile 08/14/24 documented as of this encounter
--- OUTSIDE RECORDS SUMMARY | 2024-12-04 12:30 | XMS_ITS | Encounter Summary ---
Author Organization [facility] Healthcare Address [address] [place] [address] Care Team Providers Care Pile Driving Technician Name Role Phone Unknown, Notinfile Primary Care Provider Unavail able Unknown, Notinfile Unavailable Unavailable Reason for Visit * Reason Comments Dental Pain Pain on bottom L gurpreet e of teeth and c/o pain is 10/10 started 1 week ago Encounter Details Date Type Department Care Team (Late st Contact Info) Description 12/04/2024 12:30 PM CDT Office Visit [facility] at [address] [address] Allison Barreto NP [address] [place] [address] [address] [place] [address] Pain, dental (Primary Dx) Social [...] on file 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 Thank you for choosing [facility]! It was my pleasure to see you today, I hope you feel better soon! Allison Barreto SUPERVISOR BOARDING * Attachments The following attachments cannot be sent through Care Everywhere. * Dental Cavities (Fisher Diving) ([place]) * Toothache (AfterCare(R) Instructions(ER/ED)) (Chadian) documented in this encounter Ordered Prescriptions Prescription [...] Primary documented in this encounter Care Teams Pile Driving Technician Relationship Specialty Start Date End Date Unknown, Notinfile PCP - General 08/14/24 Unknown, Notinfile 08/14/24 documented as of this encounter
[2024-12-05] VITALS (21 sets, daily range): BP systolic 118–136; BP diastolic 69–80; PULSE 63–78; RESP 16–20; TEMP 36.7; O2SAT 92–100
--- OUTSIDE RECORDS SUMMARY | 2024-12-05 06:03 | XMS_ITS | Clinical Summary ---
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 Gender Identity Not on file Sexual Orientation Not on file Plan of Treatment Health Maintenance Due Date Last Done Comments Depression Screening 2013 Varicella Vaccines (1 of 2 - 13+ 2-dose series) 2014 HPV Vaccines (2 - Male 2-dose series) 06/01/2015 11/29/2014 Meningococcal B Vaccine (1 of 2 - Standard) 2017 DTaP,Tdap,and Td Vaccines (7 - Td or Tdap) 09/09/2022 09/09/2012, 08/28/2006, 07/29/2002, Additional history exists COVID-19 Vaccine ( - 2023- season) 2023 Influenza Vaccine (#1) 2024 9, 01/13/2018, 02/02/2017, Additional history exists RSV Vaccines and 60 Years or Older (1 - 1-dose 75+ series) 2076 HIB Vaccines Completed 07/29/2002, 01/13, 2001, Additional history exists Hepatitis B Vaccines Completed 07/29/2002, 2001, 2001 IPV Vaccines Completed 08/28/2006, 01/13, 2001, Additional history exists MMR Vaccines Completed 08/28/2006, 07/29/2002 Meningococcal ACWY Vaccine Completed 11/12/2018, AMB Pneumococcal 0-49 yrs Aged Out No longer eligible based on patient's age to complete this topic Hepatitis A Vaccines Aged Out No long er eligible based on patient's age to complete this topic RSV Vaccines <20 Months Aged Out No l onger eligible based on patient's age to complete this topic Insurance LIABILITY Care Teams Hip Hop Dancer Relationship Specialty [place] [address] PCP - General Family Medicine 05/26/19
--- OUTSIDE RECORDS SUMMARY | 2024-12-05 06:03 | XMS_ITS | Clinical Summary ---
Author Organization [address] Address [address] [place] [id number] Care Team Providers Care Geotechnical Department Manager Name Role Phone Unknown, Notinfile Primary Care Provider Unavail able Unknown, Notinfile Unavailable Unavailable Allergies No known active allergies Medications loratadine (CLARITIN) 10 mg tablet Take 1 tablet (10 mg total) by mouth daily Active azithromycin (ZITHROMAX) 250 mg tablet Take 2 tabs (500 mg) by mouth today, than 1 tab (250 mg) daily for 4 days. 6 tablet 4 Active Additional Information Patient not taking.Reported on 12/04/2024 benzonatate (TESSALON) 200 mg capsuleIndicati ons:Acute cough Take 1 capsule (200 mg total) by mouth 3 (three) times a day as needed for cough 30 capsule 4 Active Additional Information Patient not taking.Reported on 12/04/2024 methylPREDNISol one (MEDROL DOSEPACK) 4 mg DosepackIndicat ions:Subacute cough Take 6 tabs on day 1, reduce dose by 1 daily until prescription is complete. 1 packet 4 Active Additional Information Patient not taking.Reported on 12/04/2024 cyclobenzaprine (FLEXERIL) 10 mg tabletIndicatio ns:Acute on chronic low back pain,Stress fracture of vertebra, unspecified spinal region, sequela Take 1 tablet (10 mg total) by mouth 3 (three) times a day as needed for muscle spasms 20 tablet 5 Active Additional Information Patient not taking.Reported on 12/04/2024 lidocaine viscous (XYLOCAINE) 2 % solutionIndicat ions:Pain, dental Apply to lesions every six hours as needed for discomfort. Do not exceed maximum dose of of 4 times daily. 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 Gender Identity Not on file Sexual Orientation [...] (182 lb) 12/04/2024 12:42 PM CDT Height 180.3 cm (5' 10.98) 08/24/2024 8:00 AM C DT Body Mass Index 25.4 08/24/2024 8:00 AM CDT Plan of Treatment Health Maintenance Due Date Last Done Comments Depression Screening 2001 Hepatitis C Screening 2001 Varicella Vaccines (1 of 2 - 13+ 2-dose series) 2014 HPV Vaccines (2 - Male 2-dose series) 06/01/2015 11/29/2014 Meningococcal B Vaccine (1 of 2 - Standard) 2017 Regular Well Visit/Exam 18-64 2019 Influenza Vaccine (#1) 2024 , 01/27/2023, 01/29/2020, Additional history exists DTaP/Tdap/Td Vaccine (8 - Td or Tdap) 02/18/2033 02/18/2023, 09/09/2012, 08/28/2006, Additional history exists Hepatitis B Screening Completed 07/29/2002 , 2001, 2001 Pneumococcal vaccine <65 Aged Out No longer eligible based on patient's age to complete this topic Insurance [facility] [id number] [facility] [id number] Care Teams Geotechnical Department Manager Relationship Specialty Start Date End Date Unknown, Notinfile PCP - General 08/14/24 Unknown, Notinfile 08/14/24
--- NOTE | 2024-12-05 07:20 | ED_ITS ---
HPI - Abdominal Pain General Chief Complaint: Abdominal Pain Stated Complaint: abd pain Time Seen by Provider: 12/05/24 07:01 History of Present Illness HPI narrative: Patient is a 24-year-old male who presents ER with abdominal cramping and diarrhea. Ongoing for the last 5 days. Was seen in the ER on 12/03/2024 and had normal lab work and abnormal CT scan of the abdomen pelvis. No fevers or chills or sweats. Reports 15 stools a day associated with cramping. He has taken some Zofran without improvement. No known sick contacts. Started clindamycin yesterday for a dental infection. No other antibiotics previously. He had been at the [place] [facility] 2 weeks ago. No other fresh water ingestion. Related Data Allergies Allergy/AdvReac Type Severity Reaction Status Date / Time No Known Allergies Allergy Verified 12/05/24 06:11 Review of Systems 2 Review of Systems: All systems reviewed & are unremarkable except as noted in HPI and below Constitutional: Constitutional: Reports no additional constitutional complaints ENT: Reports system reviewed and no additional complaints, except as documented Cardiovascular: Cardiovascular: Reports no additional cardiovascular complaints Respiratory: Respiratory: Reports no additional respiratory complaints Gastrointestinal: Gastrointestinal: Reports no additional gastrointestinal complaints PMFSH Past Medical History Medical History Meningitis Patient denies significant medical history Surgical History Surgical History History of anterior cruciate ligament surgery Social History Social History Smoking status: Never smoker Alcohol intake: never Substance use: never Substance use type: marijuana Other substance usage details: occasionally Spiritual care concerns: No Exam 2 Narrative: GENERAL: Well-appearing, well-nourished, and in no acute distress. HEAD: Normocephalic, atraumatic. ENT: Mucous membranes moist. CHEST: Clear to auscultation. No respiratory distress. HEART: Regular rate and rhythm. Normal peripheral pulses. ABDOMEN: Soft, nontender, nondistended. EXTREMITIES: Normal range of motion. No edema. SKIN: Warm, dry, no rash. NEURO: Alert and oriented x3. PSYCH: Normal mood and affect. Course Course Emergency Course: Resting comfortably without issue. Moderate improvement with Phenergan/simethicone/dicyclomine. Discharge. Vital Signs Vital signs: Vital Signs Temperature 98.1 F 12/05/24 06:05 Pulse Rate 78 12/05/24 06:05 Respiratory Rate 16 12/05/24 06:05 Blood Pressure 126/80 12/05/24 06:05 Pulse Oximetry 98 12/05/24 06:05 Oxygen Delivery Room Air 12/05/24 06:05 Temperature 98.1 F 12/05/24 06:10 Pulse Rate 63 12/05/24 07:00 Respiratory Rate 20 12/05/24 07:00 Blood Pressure 121/69 12/05/24 07:01 Pulse Oximetry 97 12/05/24 07:15 Oxygen Delivery Room Air 12/05/24 06:05 MDM - Abdominal Pain Lab Data 12/05/24 07:55 12/05/24 07:55 Labs: Lab Results 12/05/24 Range/Units 07:55 WBC 6.2 (4.5-10.0) K/mm3 RBC 4.66 (4.6-6.20) M/mm3 Hgb 14.8 (14.0-18.0) g/dL Hct 41.1 L (42.0-52.0) % MCV 88.2 (80-100) fl MCH 31.8 (26-34) pg MCHC 36.0 (32-36) g/dl RDW 11.6 (11.5-14.5) % Plt Count 196 (150-375) k/mm3 MPV 8.7 (7.4-10.4) fl Immature Gran % (Auto) 0.3 (0-0.5) % Neut % (Auto) 47.1 (45.5-73.1) % Lymph % (Auto) 35.1 (18.3-44.2) % [place] % (Auto) 16.1 H (2.6-8.5) % Eos % (Auto) 0.8 (0-4.4) % Baso % (Auto) 0.6 (0.2-1.2) % Lymph # (Auto) 2.18 (0.9-3.2) K/mm3 [place] # (Auto) 1.0 H (0.1-0.6) K/mm3 Eos # (Auto) 0.1 (0-0.3) K/mm3 Baso # (Auto) 0.0 (0.0-0.1) K/mm3 Abs Immat Gran (auto) 0.02 (0.00-0.031) K/mm3 Absolute Neuts (auto) 2.9 (1.3-6.7) K/mm3 Absolute Nucleated RBC 0.000 (0.0-0.012) K/mm3 Band Neutrophils % Not Reportable Nucleated RBC % 0.0 (0.0-0.2) % Atypical Lymphocytes Present Platelet Estimate Adequate (Adequate) Schistocytes None seen Sodium 136 L (137-145) mmol/L Potassium 3.8 (3.4-5.0) mmol/L Chloride 102 (98-107) mmol/L Carbon Dioxide 22 (22-30) mmol/L Anion Gap 12 (4-12) mmol/L BUN 15 (9-20) mg/dL Creatinine 1.07 (0.7-1.3) mg/dL Estim Creat Clear Calc 101 ml/min Estimated GFR > 60 (59 - ) Glucose 128 H (65-110) mg/dL Calcium 9.5 (8.4-10.2) mg/dL Total Bilirubin 0.7 (0.2-1.3) mg/dL AST 38 (17-59) U/L ALT 29 (6-50) U/L Alkaline Phosphatase 65 (38-126) U/L Total Protein 7.8 (6.3-8.2) g/dL Albumin 4.5 (3.5-5.1) g/dL Lipase 43 (23-300) U/L Discharge Plan Discharge Clinical Impression: Gastroenteritis Patient Disposition: Home Condition: Stable Instructions: Gastroenteritis (ED) Additional Instructions: Please drink plenty of fluids at home. Return to the emergency department if you develop high fevers, have persistent severe abdominal pain, or have bloody stools or vomit, as these could be signs of a more serious medical emergency. Return to the emergency department if you are unable to keep down liquids because of severe nausea/vomiting. Patient Language: Turkish Prescriptions: New simethicone 125 mg capsule 125 mg PO QID Qty: 20 0RF Rx Instructions: administer after meals and at bedtime dicyclomine 20 mg tablet 20 mg PO QID Qty: 20 0RF No Action ondansetron 4 mg tablet,disintegrating 4 mg PO Q8H PRN (Reason: nausea and vomiting) Qty: 10 0RF Follow-up/Referrals: Michael Johnson MD [Primary Care Provider, Family Practice] - 1 Week
--- NOTE | 2024-12-05 07:30 | PC.NURSE ---
Assumed care of pt from [place]. Pt being seen by Dr Brown and then in bathroom with diarrhea.
[2024-12-05] MEDS: DICYCLOMINE HCL 10 MG CAPSULE 20 MG PO (07:57)
[2024-12-05] MEDS: SIMETHICONE 125 MG CHEW TAB PO (07:58)
[2024-12-05] MEDS: PROMETHAZINE HCL 25 MG/ML AMPUL 12.5 MG IV PUSH (07:58)
[2024-12-05] MEDS: SODIUM CHLORIDE 0.9% IV 1,000 ML 999 ML IV CONT (07:59)
[2024-12-05 08:01] LABS: Hematocrit 41.1 % (42.0-52.0); Hemoglobin 14.8 g/dL (14.0-18.0); Immature Granulocyte Percent A 0.3 % (0-0.5); Lymphocytes Absolute Auto 2.18 K/mm3 (0.9-3.2); Mean Corpuscular HGB Conc 36.0 g/dl (32-36); Mean Corpuscular Hemoglobin 31.8 pg (26-34); Mean Corpuscular Volume 88.2 fl (80-100); Nucleated Red Blood Cells Absolute Auto 0.000 K/mm3 (0.0-0.012); Nucleated Red Blood Cells Perc 0.0 % (0.0-0.2); Platelet Count Result 196 k/mm3 (150-375); Red Blood Count 4.66 M/mm3 (4.6-6.20); White Blood Count 6.2 K/mm3 (4.5-10.0)
--- OUTSIDE RECORDS SUMMARY | 2024-12-05 08:11 | XMS_ITS | Clinical Summary ---
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
--- OUTSIDE RECORDS SUMMARY | 2024-12-05 08:11 | XMS_ITS | Clinical Summary ---
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
[2024-12-05 08:18] LABS: Alanine Aminotransferase 29 U/L (6-50); Albumin Level 4.5 g/dL (3.5-5.1); Alkaline Phosphatase 65 U/L (38-126); Anion Gap 12 mmol/L (4-12); Aspartate Amino Transferase 38 U/L (17-59); Bilirubin,Total 0.7 mg/dL (0.2-1.3); Blood Urea Nitrogen 15 mg/dL (9-20); Calcium 9.5 mg/dL (8.4-10.2); Carbon Dioxide 22 mmol/L (22-30); Chloride 102 mmol/L (98-107); Estimated CRCL calculation 101 ml/min; Estimated Glomerular Filt Rate > 60; Glucose 128 mg/dL (65-110); Lipase 43 U/L (23-300); Potassium 3.8 mmol/L (3.4-5.0); Sodium 136 mmol/L (137-145); Total Protein 7.8 g/dL (6.3-8.2)
[2024-12-05 08:32] LABS: Schistocytes None Seen
== END 2024-12-05 10:15 | disposition home or self-care (01) ==
PROVIDERS: Emergency Provider Emergency Medicine; PCP Family Medicine
DX: K52.9 Noninfective gastroenteritis and colitis, unspecified (principal)
CPT/HCPCS: 36415; 80053; 83690; 85025; 96361; 96374; 99284; A9270; J2550; J7030

== ENCOUNTER 2024-12-08 08:38 | Outpatient (CLI) | payer OTHER, SELFPAY ==
--- OUTSIDE RECORDS SUMMARY | 2024-12-08 08:43 | XMS_ITS | Clinical Summary ---
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
--- OUTSIDE RECORDS SUMMARY | 2024-12-08 08:43 | XMS_ITS | Clinical Summary ---
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
[2024-12-08 09:00] LABS: Hematocrit 36.0 % (42.0-52.0); Hemoglobin 12.4 g/dL (14.0-18.0); Immature Granulocyte Percent A 2.0 % (0-0.5); Lymphocytes Absolute Auto 2.18 K/mm3 (0.9-3.2); Mean Corpuscular HGB Conc 34.4 g/dl (32-36); Mean Corpuscular Hemoglobin 31.7 pg (26-34); Mean Corpuscular Volume 92.1 fl (80-100); Nucleated Red Blood Cells Absolute Auto 0.000 K/mm3 (0.0-0.012); Nucleated Red Blood Cells Perc 0.0 % (0.0-0.2); Platelet Count Result 207 k/mm3 (150-375); Red Blood Count 3.91 M/mm3 (4.6-6.20); White Blood Count 5.1 K/mm3 (4.5-10.0)
[2024-12-08 09:31] LABS: Anion Gap 7 mmol/L (4-12); Blood Urea Nitrogen 18 mg/dL (9-20); Calcium 9.2 mg/dL (8.4-10.2); Carbon Dioxide 28 mmol/L (22-30); Chloride 102 mmol/L (98-107); Estimated Glomerular Filt Rate > 60; Glucose 91 mg/dL (65-110); Potassium 4.1 mmol/L (3.4-5.0); Sodium 137 mmol/L (137-145)
[2024-12-09 09:08] LABS: Cytomegalovirus (CMV) Ab, IgG 4.10 U/mL (0.00-0.59); Cytomegalovirus (CMV) Ab, IgM <30.0 AU/mL (0.0-29.9)
[2024-12-09 14:08] LABS: EBV Nuclear Antigen Ab, IgG 243.0 U/mL (0.0-17.9)
== END 2024-12-08 08:39 | disposition home or self-care (01) ==
PROVIDERS: PCP Family Medicine
DX: R79.89 Other specified abnormal findings of blood chemistry (principal); Z86.61 Personal history of infections of the central nervous system
CPT/HCPCS: 36415; 80048; 85025; 86644; 86645; 86664; 86665

== ENCOUNTER 2024-12-08 15:40 | Outpatient (CLI) | payer OTHER, SELFPAY ==
--- OUTSIDE RECORDS SUMMARY | 2024-12-08 15:42 | XMS_ITS | Clinical Summary ---
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
== END 2024-12-08 15:41 | disposition home or self-care (01) ==
PROVIDERS: PCP Family Medicine
DX: K52.9 Noninfective gastroenteritis and colitis, unspecified (principal)
CPT/HCPCS: 87045; 87046; 87427

== ENCOUNTER 2024-12-10 14:02 | Outpatient (CLI) | payer OTHER, SELFPAY ==
--- OUTSIDE RECORDS SUMMARY | 2024-12-10 14:07 | XMS_ITS | Clinical Summary ---
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
--- OUTSIDE RECORDS SUMMARY | 2024-12-10 14:07 | XMS_ITS | Clinical Summary ---
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
[2024-12-10 14:12] LABS: Hematocrit 36.2 % (42.0-52.0); Hemoglobin 12.5 g/dL (14.0-18.0); Immature Granulocyte Percent A 3.0 % (0-0.5); Lymphocytes Absolute Auto 2.32 K/mm3 (0.9-3.2); Mean Corpuscular HGB Conc 34.5 g/dl (32-36); Mean Corpuscular Hemoglobin 31.3 pg (26-34); Mean Corpuscular Volume 90.5 fl (80-100); Nucleated Red Blood Cells Absolute Auto 0.000 K/mm3 (0.0-0.012); Nucleated Red Blood Cells Perc 0.0 % (0.0-0.2); Platelet Count Result 280 k/mm3 (150-375); Red Blood Count 4.00 M/mm3 (4.6-6.20); White Blood Count 7.0 K/mm3 (4.5-10.0)
[2024-12-10 14:26] LABS: Iron 94 ug/dL (49-181)
[2024-12-10 14:35] LABS: Percent Iron Saturation 29 % (20-50)
[2024-12-10 15:07] LABS: Ferritin 55.90 ng/mL (17.9-464)
[2024-12-10 15:29] LABS: Vitamin B12 446.0 pg/mL (239-931)
== END 2024-12-10 14:03 | disposition home or self-care (01) ==
PROVIDERS: PCP Family Medicine
DX: D64.9 Anemia, unspecified (principal)
CPT/HCPCS: 36415; 82607; 82728; 82746; 83540; 83550; 85025